=== PATIENT | male | born 1955 | race Hispanic/Latino ===

== ENCOUNTER 2018-12-31 16:10 | Emergency (ER) | payer SELFPAY ==
--- OUTSIDE RECORDS SUMMARY | 2018-12-31 16:12 | XMS REPORT ---
:1955 Author Organization [employer] Care Team Providers Name Role Phone Wilson, Na Provider Role Unavailable Allergies No Known Allergies Problems Problem Type Condition Code Onset Dates Condition Status Problem Varicose veins I86.8 Active Problem Peripheral vascular disease I73.9 Active Problem Obese E66.9 Active Problem Diabetic mononeuropathy associated E11.41 Active with type 2 diabetes mellitus Assessment Benign essential HTN I10 Active Problem Asymptomatic hypertensive urgency I16.0 Active Assessment Asymptomatic hypertensive urgency I16.0 Active Problem Cellulitis of left anterior lower L03.116 Active leg Problem Benign prostatic hyperplasia with N40.1 Active lower urinary tract symptoms Problem Benign essential HTN I10 Active Problem Other secondary osteoarthritis of M17.5 Active knee Problem DM type 2 (diabetes mellitus, type E11.9 Active 2) Assessment Hyperlipidemia, unspecified E78.5 Active Assessment Diabetic mononeuropathy associated E11.41 Active with type 2 diabetes mellitus Assessment Peripheral vascular disease I73.9 Active Assessment Gastroesophageal reflux disease K21.9 Active without esophagitis Problem Osteoarthritis of both knees, M17.0 Active unspecified osteoarthritis type Problem Hyperlipidemia, unspecified E78.5 Active Assessment Hypokalemia E87.6 Active Problem Gastroesophageal reflux disease K21.9 Active without esophagitis Problem Type 2 diabetes mellitus with other E11.69 Active specified complication Medications Medication Code Code Instructions Start End Status Dosage System Date Date Clonidine HCl [facility] 64837278734 0.2 MG Orally May 31, Active 1 tablet three times a 2018 day Potassium [facility] 59146349666 20 MEQ Orally May 31, Aug 29, Active 1 capsule Chloride twice a day 2017 2017 Pravastatin ND 43181152234 40 MG Orally Active 1 tablet Sodium Once a day Zantac [facility] 98584534682 150 MG Orally Active 1 tablet twice a day at bedtime Clonidine HCl [facility] 02982054495 0.1 MG Orally March 15, Active 1 tablet twice a day 2018 at bedtime Lisinopril ND 77642281185 40 MG Orally Active 1 tablet Once a day Coreg [facility] 30923529526 25 MG Orally Active 1 tablet twice a day twice a day Gabapentin [facility] 48552576417 300 MG Orally Active 1 capsule Once a day Plavix [facility] 28560284630 75 MG Orally Active 1 tablet Once a day Amlodipine [facility] 62344519198 10 MG Orally Active 1 tablet Besylate Once a day Results No Known Results Summary Purpose eClinicalWorks Submission
--- OUTSIDE RECORDS SUMMARY | 2018-12-31 16:12 | XMS REPORT ---
:1955 Author Organization [employer] Care Team Providers Name Role Phone Wilson, Na Provider Role Unavailable Allergies, Adverse Reactions, Alerts Substance Reaction Event Type N.K.D.A. Info Not Available Non Drug Allergy Problems Problem Type Condition Code Onset Dates Condition Status Problem Varicose veins I86.8 Active Problem Peripheral vascular disease I73.9 Active Problem Obese E66.9 Active Problem Diabetic mononeuropathy associated E11.41 Active with type 2 diabetes mellitus Assessment Hyperlipidemia, unspecified E78.5 Active Problem Asymptomatic hypertensive urgency I16.0 Active Assessment Gastroesophageal reflux disease K21.9 Active without esophagitis Assessment Hypokalemia E87.6 Active Problem Cellulitis of left anterior lower L03.116 Active leg Problem Benign prostatic hyperplasia with N40.1 Active lower urinary tract symptoms Problem Benign essential HTN I10 Active Problem Other secondary osteoarthritis 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 Active knee Problem DM type 2 (diabetes mellitus, type E11.9 Active 2) Assessment Benign essential HTN I10 Active Assessment Peripheral vascular disease I73.9 Active Assessment Diabetic mononeuropathy associated E11.41 Active with type 2 diabetes mellitus Assessment Asymptomatic hypertensive urgency I16.0 Active Problem Osteoarthritis of both knees, M17.0 Active unspecified osteoarthritis type Problem Hyperlipidemia, unspecified E78.5 Active Assessment DM type 2 (diabetes mellitus, type E11.9 Active 2) Problem Gastroesophageal reflux disease K21.9 Active without esophagitis Problem Type 2 diabetes mellitus with other E11.69 Active specified complication Medications Medication Code Code Instructions Start End Status Dosage System Date Date Amlodipine ND 97717480098 10 MG Orally Active 1 tablet Besylate Once a day Saline Wound ND 70732112617 0.9 % Active as directed Wash Externally twice a day Pravastatin ND 44259181702 40 MG Orally Active 1 tablet Sodium Once a day Potassium ND 91017594828 20 MEQ Orally May 31, Aug 29, Active 1 capsule Chloride twice a day 2017 2017 Lisinopril ND 02886301429 40 MG Orally Active 1 tablet Once a day Vimovo ND 20319286587 500-20 MG Active 1 tablet Orally Twice a before day meals Gabapentin [facility] 48472207638 300 MG Orally Active 1 capsule Once a day Zantac [facility] 94350569125 150 MG Orally Active 1 tablet at twice a day bedtime Plavix [facility] 56977478654 75 MG Orally Active 1 tablet Once a day Clonidine HCl [facility] 00589218682 0.2 MG Orally May 31, Active 1 tablet three times a 2018 day Aspirin Adult [facility] 53743394863 81 MG Orally Active 1 tablet Low Dose Once a day Crestor [facility] 58650337558 5 MG Orally Oct 26, Active 1 tablet Once a day 2017 Clonidine HCl [facility] 92305359456 0.1 MG Orally March 15, Active 1 tablet at twice a day 2018 bedtime Coreg [facility] 02184629799 25 MG Orally Active 1 tablet twice a day twice a day Results No Known Results Summary Purpose eClinicalWorks Submission
--- OUTSIDE RECORDS SUMMARY | 2018-12-31 16:12 | XMS REPORT ---
:1955 Author Organization [employer]Works Care Team Providers Name Role Phone Wilson, Na Provider Role Unavailable Allergies No Known Allergies Problems Problem Type Condition Code Onset Dates Condition Status Problem Varicose veins I86.8 Active Problem Peripheral vascular disease I73.9 Active Problem Obese E66.9 Active Problem Diabetic mononeuropathy associated E11.41 Active with type 2 diabetes mellitus Problem Asymptomatic hypertensive urgency I16.0 Active Problem Cellulitis of left anterior lower L03.116 Active leg Problem Benign prostatic hyperplasia with N40.1 Active lower urinary tract symptoms Problem Benign essential HTN I10 Active Problem Other secondary osteoarthritis 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
--- OUTSIDE RECORDS SUMMARY | 2018-12-31 16:12 | XMS REPORT ---
:1955 Author Organization [employer]Works Care Team Providers Name Role Phone Americo Costello Provider Role Unavailable Allergies, Adverse Reactions, Alerts Substance Reaction Event Type N.K.D.A. Info Not Available Non Drug Allergy Problems Problem Type Condition Code Onset Dates Condition Status Problem Obese E66.9 Active Problem Benign essential HTN I10 Active Problem Peripheral vascular disease I73.9 Active Problem Cellulitis of left anterior lower L03.116 Active leg Problem Diabetic mononeuropathy associated E11.41 Active with type 2 diabetes mellitus Problem Primary osteoarthritis of right M17.11 Active knee Problem Other secondary osteoarthritis of M17.5 Active knee Problem DM type 2 (diabetes mellitus, type E11.9 Active 2) Problem Asymptomatic hypertensive urgency I16.0 Active Problem Benign prostatic hyperplasia with N40.1 Active lower urinary tract symptoms Assessment Contusion of right knee, initial S80.01XA Active encounter Assessment Pain in joint of right knee M25.561 Active Assessment Primary osteoarthritis of right M17.11 Active knee Problem Hyperlipidemia, unspecified E78.5 Active Problem Gastroesophageal reflux disease K21.9 Active without esophagitis Problem Type 2 diabetes mellitus with E11.69 Active other specified complication Problem Osteoarthritis of both knees, M17.0 Active unspecified osteoarthritis type Problem Varicose veins I86.8 Active Medications Medication Code Code Instructions Start End Status Dosage System Date Date Tramadol HCl [facility] 27375518881 50 MG Orally Oct 31, Active 1 tablet as every 6 hrs 2019 needed Coreg ND 53770416791 25 MG Orally Active 1 tablet twice a day twice a day Vimovo [facility] 85947576258 500-20 MG Active 1 tablet Orally Twice a before day meals Aspirin Adult [facility] 33497679079 81 MG Orally Active 1 tablet Low Dose Once a day Saline Wound [facility] 74523999903 0.9 % Active as directed Wash Externally twice a day Gabapentin ND 81334811858 300 MG Orally Active 1 capsule Once a day Plavix [facility] 83079165410 75 MG Orally Active 1 tablet Once a day Clonidine HCl [facility] 40393118668 0.2 MG Orally May 31, Active 1 tablet three times a 2017 day Lisinopril [facility] 04643247884 40 MG Orally Active 1 tablet Once a day Clonidine HCl [facility] 31079396793 0.1 MG Orally March 15, Active 1 tablet at twice a day 2018 bedtime Amlodipine [facility] 89107000279 10 MG Orally Active 1 tablet Besylate Once a day Crestor [facility] 81899917510 5 MG Orally Oct 26, Active 1 tablet Once a day 2017 Potassium [facility] 35398261801 20 MEQ Active TAKE 1 Chloride Rossy TABLET BY ER MOUTH TWICE DAILY WITH FOOD Pravastatin [facility] 59781385573 40 MG Orally Active 1 tablet Sodium Once a day Zantac [facility] 18075817436 150 MG Orally Active 1 tablet at twice a day bedtime Results No Known Results Summary Purpose eClinicalWorks Submission
--- OUTSIDE RECORDS SUMMARY | 2018-12-31 16:12 | XMS REPORT ---
[...] Medications Medication Code Code Instructions Start End Date Status Dosage System Date [facility] M20 [facility] 88669063215 20 MEQ Orally April 08, May 08, Active 1 tablet Twice a day 2017 2017 with food Results No Known Results Summary Purpose eClinicalWorks Submission
--- OUTSIDE RECORDS SUMMARY | 2018-12-31 16:13 | XMS REPORT ---
:1955 Author Organization eClinicalWorks Care Team Providers Name Role Phone Wilson, Na Provider Role Unavailable Allergies, Adverse Reactions, Alerts Substance Reaction Event Type N.K.D.A. Info Not Available Non Drug Allergy Problems Problem Type Condition Code Onset Dates Condition Status Assessment Hypokalemia E87.6 Active Problem Peripheral vascular disease I73.9 Active Assessment Gastroesophageal reflux disease K21.9 Active without esophagitis Problem Benign essential HTN I10 Active Assessment Hyperlipidemia, unspecified E78.5 Active Problem DM type 2 (diabetes mellitus, type E11.9 Active 2) Problem Obese E66.9 Active Problem Benign prostatic hyperplasia with N40.1 Active lower urinary tract symptoms Problem Renal cyst N28.1 Active Problem Primary osteoarthritis of right M17.11 Active knee Assessment Peripheral vascular disease I73.9 Active Assessment Renal cyst N28.1 Active Problem Hypokalemia E87.6 Active Assessment Diabetic mononeuropathy associated E11.41 Active with type 2 diabetes mellitus Problem Asymptomatic hypertensive urgency I16.0 Active Problem Other secondary osteoarthritis of M17.5 Active knee Problem Cellulitis of left anterior lower L03.116 Active leg Problem Diabetic mononeuropathy associated E11.41 Active with type 2 diabetes mellitus Problem Osteoarthritis of both knees, M17.0 Active unspecified osteoarthritis type Assessment Asymptomatic hypertensive urgency I16.0 Active Assessment DM type 2 (diabetes mellitus, type E11.9 Active 2) Problem Type 2 diabetes mellitus with other E11.69 Active specified complication Problem Varicose veins I86.8 Active Problem Hyperlipidemia, unspecified E78.5 Active Problem Gastroesophageal reflux disease K21.9 Active without esophagitis Medications Medication Code Code Instructions Start End Status Dosage System Date Date Lisinopril [facility] 84874385069 40 MG Orally Active 1 tablet Once a day Clonidine HCl [facility] 72391872574 0.1 MG Orally March 15, Active 1 tablet at twice a day 2018 bedtime Coreg [facility] 02501504953 25 MG Orally Active 1 tablet twice a day twice a day Vimovo [facility] 57668819565 500-20 MG Active 1 tablet Orally Twice a before day meals Potassium [facility] 98611533797 20 MEQ Active TAKE 1 Chloride Rossy TABLET BY ER MOUTH TWICE DAILY WITH FOOD Plavix [facility] 13420166750 75 MG Orally Active 1 tablet Once a day Pravastatin [facility] 18154959188 40 MG Orally Active 1 tablet Sodium Once a day Zantac [facility] 61746157441 150 MG Orally Active 1 tablet at twice a day bedtime Clonidine HCl [facility] 70997158596 0.2 MG Orally Active 1 tablet three times a day Aspirin Adult [facility] 30143405700 81 MG Orally Active 1 tablet Low Dose Once a day Telmisartan [facility] 36760110068 80 MG Orally Nov 11, Active 1 tablet Once a day 2018 Amlodipine [facility] 86396263558 10 MG Orally Active 1 tablet Besylate Once a day Gabapentin [facility] 05391731495 300 MG Orally Active 1 capsule Once a day Saline Wound [facility] 39158437976 0.9 % Active as directed Wash Externally twice a day Crestor [facility] 88335324578 5 MG Orally Oct 26, Active 1 tablet Once a day 2017 Potassium [facility] 16882948358 20 MEQ Orally Nov 11, Active 1 tablet Chloride ER twice a day 2018 with food Results No Known Results Summary Purpose eClinicalWorks Submission
--- OUTSIDE RECORDS SUMMARY | 2018-12-31 16:13 | XMS REPORT ---
:1955 [facility] Address [address] [place] [address] Dr. Yang [address] [place] [id number] Care Team Providers Name Role Phone Unavailable Unavailable Unavailable Problems This patient has no known problems. Allergies, Adverse Reactions, Alerts This patient has no known allergies or adverse reactions. Medications This patient has no known medications.
--- OUTSIDE RECORDS SUMMARY | 2018-12-31 16:13 | XMS REPORT ---
:1955 Author Organization eClinicalWorks Care Team Providers Name Role Phone Americo Costello Provider Role Unavailable Allergies, Adverse Reactions, Alerts Substance Reaction Event Type N.K.D.A. Info Not Available Non Drug Allergy Problems Problem Type Condition Code Onset Dates Condition Status Problem DM type 2 (diabetes mellitus, type E11.9 Active 2) Problem Obese E66.9 Active Problem Benign prostatic hyperplasia with N40.1 Active lower urinary tract symptoms Problem Renal cyst N28.1 Active Assessment Primary osteoarthritis of right M17.11 Active knee Problem Primary osteoarthritis of right M17.11 Active knee Problem Hypokalemia E87.6 Active Problem Asymptomatic hypertensive urgency I16.0 Active Problem Other secondary osteoarthritis of M17.5 Active knee Problem Cellulitis of left anterior lower L03.116 Active leg Problem Diabetic mononeuropathy associated E11.41 Active with type 2 diabetes mellitus Problem Osteoarthritis of both knees, M17.0 Active unspecified osteoarthritis type Assessment Contusion of right knee, initial S80.01XA Active encounter Assessment Pain in joint of right knee M25.561 Active Problem Type 2 diabetes mellitus with E11.69 Active other specified complication Problem Varicose veins I86.8 Active Problem Hyperlipidemia, unspecified E78.5 Active Problem Peripheral vascular disease I73.9 Active Problem Gastroesophageal reflux disease K21.9 Active without esophagitis Problem Benign essential HTN I10 Active Medications Medication Code Code Instructions Start End Status Dosage System Date Date Zantac ND 99881372424 150 MG Orally Active 1 tablet at twice a day bedtime Clonidine HCl ND 86899154684 0.2 MG Orally Active 1 tablet three times a day Amlodipine ND 17542949498 10 MG Orally Active 1 tablet Besylate Once a day Potassium ND 26471549219 20 MEQ Orally Nov 11, Active 1 tablet Chloride ER twice a day 2019 with food Potassium ND 30361446036 20 MEQ Active TAKE 1 Chloride Rossy TABLET BY ER MOUTH TWICE DAILY WITH FOOD Clonidine HCl ND 40801894225 0.1 MG Orally March 15, Active 1 tablet at twice a day [address] [facility] 53451743210 5 MG Orally Oct 26, Active 1 tablet Once a day [address] [facility] 95495042422 40 MG Orally Active 1 tablet Once a day Tramadol HCl [facility] 40249696802 50 MG Orally Active 1 tablet as every [address] [facility] 52284302131 40 MG Orally Active 1 tablet Sodium Once a day Telmisartan [facility] 32577798051 80 MG Orally Nov 11, Active 1 tablet Once a day [address] [facility] 49896209830 75 MG Orally Active 1 tablet Once a day Coreg [facility] 20400548695 25 MG Orally Active 1 tablet twice a day twice a day Vimovo [facility] 32348069393 500-20 MG Active 1 tablet Orally Twice a before day meals Aspirin Adult [facility] 21599235792 81 MG Orally Active 1 tablet Low Dose Once a day Gabapentin [facility] 80332033774 300 MG Orally Active 1 capsule Once a day Saline Wound [facility] 58405037645 0.9 % Active as directed Wash Externally twice a day Results No Known Results Summary Purpose eClinicalWorks Submission
--- OUTSIDE RECORDS SUMMARY | 2018-12-31 16:13 | XMS REPORT ---
[...] N40.1 Active lower urinary tract symptoms Problem Hyperlipidemia, unspecified E78.5 Active Problem Gastroesophageal reflux disease K21.9 Active without esophagitis Problem Type 2 diabetes mellitus with other E11.69 Active specified complication Problem Osteoarthritis of both knees, M17.0 Active unspecified osteoarthritis type Problem Varicose veins I86.8 Active Medications No Known Medications Results No Known Results Summary Purpose [employer] Submission
--- NOTE | 2018-12-31 17:25 | ER ---
Nurse's Notes [facility] Name: Son Parker Age: 63 yrs Sex: Male : 1955 Arrival Date: 12/31/2018 Time: 16:12 Bed 11 Private MD: Diagnosis: Nondisplaced comminuted fracture of right patella;Contusion of right front wall of thorax;Fracture of one rib, right side Presentation: 12/31 16:15 Presenting complaint: Patient states: i fell Sunday, my right ribs hurt, and both of my tw2 knees i was standing and i wanted to go up to the sidewalk and my legs didn't go up and then i fell, denies loc, didn't hit my head. Transition of care: patient was not received from another setting of care. Onset of symptoms was December 31, 2018. Risk Assessment: Do you want to hurt yourself or someone else? Patient reports no desire to harm self or others. Initial Sepsis Screen: Does the patient meet any 2 criteria? No. Patient's initial sepsis screen is negative. Does the patient have a suspected source of infection? No. Patient's initial sepsis screen is negative. Care prior to arrival: None. 16:15 Method Of Arrival: Wheelchair tw2 16:15 Acuity: HEATHER 4 tw2 Triage Assessment: 16:17 General: Appears in no apparent distress. Behavior is calm, cooperative, appropriate tw2 for age. Pain: Complains of pain in right ribs, b/l knees. Historical: - Allergies: 16:18 No Known Allergies; tw2 - PMHx: 16:18 Diabetes - NIDDM; Hypertension; tw2 - Immunization history:: Adult Immunizations. - Social history:: Smoking status: . - Ebola Screening: : Patient negative for fever greater than or equal to 101.5 degrees Fahrenheit, and additional compatible Ebola Virus Disease symptoms Patient denies travel to an Ebola-affected area in the 21 days before illness onset. Screenin:30 Abuse screen: Denies threats or abuse. Denies injuries from another. Nutritional aj1 screening: No deficits noted. Tuberculosis screening: No symptoms or risk factors identified. 18:16 Fall Risk Fall in past 12 months (25 points). No secondary diagnosis (0 pts). No IV (0 aj1 pts). Ambulatory Aid- Crutches/Cane/Walker (15 pts). Gait- Impaired (20 pts.). Mental Status- Oriented to own ability (0 pts). Total Snider Fall Scale indicates High Risk Score (45 or more points). As available patient and family educated on Fall Prevention Program and Strategies. Assessment: 16:30 General: Appears in no apparent distress. uncomfortable, Behavior is calm, cooperative, aj1 appropriate for age. Pain: Complains of pain in right leg and left knee and right lateral anterior chest. Neuro: Level of Consciousness is awake, alert, obeys commands. Cardiovascular: Patient's skin is warm and dry. Respiratory: Airway is patent Respiratory effort is even, unlabored, Respiratory pattern is regular, symmetrical. Derm: Skin is pink, warm \T\ dry. normal. Musculoskeletal: Range of motion: limited in left knee and right knee. 17:30 Reassessment: Patient appears in no apparent distress at this time. No changes from aj1 previously documented assessment. Patient and/or family updated on plan of care and expected duration. Pain level reassessed. Patient is alert, oriented x 3, equal unlabored respirations, skin warm/dry/pink. Vital Signs: 16:17 BP 170 / 105; Pulse 88; Resp 17; Temp 98.4(O); Pulse Ox 99% on R/A; Weight 89.81 kg tw2 (R); Pain 8/10; ED Course: 16:12 Patient arrived in ED. mr 16:17 Triage completed. tw2 16:17 Arm band placed on. tw2 16:19 Jasmina Merritt [facility]-C [facility]. kb 16:19 Sohail Adams MD is Attending Physician. kb 16:30 Patient has correct armband on for positive identification. Bed in low position. Call aj1 light in reach. Side rails up X 1. 16:30 No provider procedures requiring assistance completed. Patient did not have IV access aj1 during this emergency room visit. 16:42 Gabby Yancey, RN is Primary Nurse. aj1 16:59 X-ray completed. Patient tolerated procedure well. Patient moved back from radiology. az 17:01 Knee Left 2 View XRAY In Process Unspecified. EDMS 17:01 Knee Right 2 View XRAY In Process Unspecified. EDMS 17:01 Chest Single View XRAY In Process Unspecified. EDMS 17:01 Ribs Right XRAY In Process Unspecified. EDMS 18:16 Knee immobilizer applied on right knee. aj1 Administered Medications: 18:15 Drug: Paradox (7.5 mg-325 mg) 1 tabs Route: PO; aj1 18:17 Follow up: Response: No adverse reaction aj1 Outcome: 17:24 Discharge ordered by . kb 18:16 Discharged to home with family. aj1 18:16 Condition: good 18:16 Discharge instructions given to patient, Instructed on discharge instructions, follow up and referral plans. medication usage, Demonstrated understanding of instructions, follow-up care, medications, Prescriptions given X 1. 18:18 Patient left the ED. aj1 Signatures: Dispatcher [employer] EDMS Jasmina Merritt, HUMAN RESOURCES ASSOCIATE-C HUMAN RESOURCES ASSOCIATE-CkGabby Haq, RN RN aj1 La Menjivar Tara, RN RN tw2 Tess Jacobs
--- NOTE | 2018-12-31 17:25 | EDPHYS ---
Physician Documentation [facility] Name: Son Parker Age: 63 yrs Sex: Male : 1955 Arrival Date: 12/31/2018 Time: 16:12 Bed 11 Private MD: ED Physician Sohail Adams HPI: 12/31 16:33 This 63 yrs old Male presents to ER via Wheelchair with complaints of Knee kb Pain, rib pain. 16:33 Details of fall: The patient fell from an upright position, while walking. Onset: The kb symptoms/episode began/occurred yesterday. Associated injuries: The patient sustained injury to the chest, specifically the right lateral anterior chest and right breast, contusion, ecchymosis, pain with movement, tenderness, right knee and left knee, ecchymosis, painful injury. Severity of symptoms: At their worst the symptoms were moderate, in the emergency department the symptoms are unchanged. The patient has not experienced similar symptoms in the past. The patient has not recently seen a physician. Historical: - Allergies: 16:18 No Known Allergies; tw2 - PMHx: 16:18 Diabetes - NIDDM; Hypertension; tw2 - Immunization history:: Adult Immunizations. - Social history:: Smoking status: . - Ebola Screening: : Patient negative for fever greater than or equal to 101.5 degrees Fahrenheit, and additional compatible Ebola Virus Disease symptoms Patient denies travel to an Ebola-affected area in the 21 days before illness onset. ROS: 16:30 Constitutional: Negative for fever, chills, and weight loss, ENT: Negative for injury, kb pain, and discharge, Neck: Negative for injury, pain, and swelling, Respiratory: Negative for shortness of breath, cough, wheezing, and pleuritic chest pain, Abdomen/GI: Negative for abdominal pain, nausea, vomiting, diarrhea, and constipation, Back: Negative for injury and pain, Skin: Negative for injury, rash, and discoloration, Neuro: Negative for headache, weakness, numbness, tingling, and seizure. 16:30 Cardiovascular: Positive for chest pain, with cough, with movement, of the right lateral anterior chest and right breast. 16:30 MS/extremity: Positive for ecchymosis, pain, of the right knee and left knee. kb Exam: 16:30 Constitutional: This is a well developed, well nourished patient who is awake, alert, kb and in no acute distress. Head/Face: Normocephalic, atraumatic. ENT: Nares patent. No nasal discharge, no septal abnormalities noted. Tympanic membranes are normal and external auditory canals are clear. Oropharynx with no redness, swelling, or masses, exudates, or evidence of obstruction, uvula midline. Mucous membranes moist. Neck: Trachea midline, no thyromegaly or masses palpated, and no cervical lymphadenopathy. Supple, full range of motion without nuchal rigidity, or vertebral point tenderness. No Meningismus. Cardiovascular: Regular rate and rhythm with a normal S1 and S2. No gallops, murmurs, or rubs. Normal PMI, no JVD. No pulse deficits. Respiratory: Lungs have equal breath sounds bilaterally, clear to auscultation and percussion. No rales, rhonchi or wheezes noted. No increased work of breathing, no retractions or nasal flaring. Abdomen/GI: Soft, non-tender, with normal bowel sounds. No distension or tympany. No guarding or rebound. No evidence of tenderness throughout. Neuro: Awake and alert, GCS 15, oriented to person, place, time, and situation. Cranial nerves II-XII grossly intact. Motor strength 5/5 in all extremities. Sensory grossly intact. Cerebellar exam normal. Normal gait. 16:30 Chest/axilla: Inspection: ecchymosis, that is mild, of the right lateral anterior chest and right breast Palpation: tenderness, that is moderate, of the right lateral anterior chest and right breast, that totally reproduces the patient's complaints. 16:30 Cardiovascular: Edema: 2+ edema to level of bilateral lower extremities, reports the edema has been there for 5-6 months, nothing acute. 16:30 Musculoskeletal/extremity: Extremities: grossly normal except: noted in the right knee and left knee: ecchymosis, pain, tenderness, ROM: intact in all extremities, Circulation is intact in all extremities. Sensation intact. Weight bearing: can bear weight with assistance only, uses cane. Vital Signs: 16:17 BP 170 / 105; Pulse 88; Resp 17; Temp 98.4(O); Pulse Ox 99% on R/A; Weight 89.81 kg tw2 (R); Pain 8/10; MDM: 16:19 Patient medically screened. kb 16:30 Data reviewed: vital signs, nurses notes. Data interpreted: Pulse oximetry: on room air kb is 99 %. Interpretation: normal. 17:16 Counseling: I had a detailed discussion with the patient and/or guardian regarding: the kb historical points, exam findings, and any diagnostic results supporting the discharge/admit diagnosis, the need for outpatient follow up, a family practitioner, a orthopedic surgeon, to return to the emergency department if symptoms worsen or persist or if there are any questions or concerns that arise at home. 17:22 Test interpretation: by ED physician or midlevel provider: plain radiologic studies, kb plain films reviewed with ERP . 12/31 16:24 Order name: Knee Left 2 View XRAY; Complete Time: 17:33 kb 12/31 16:24 Order name: Knee Right 2 View XRAY; Complete Time: 17:29 kb 12/31 16:24 Order name: Chest Single View XRAY; Complete Time: 17:26 kb 12/31 16:24 Order name: Ribs Right XRAY; Complete Time: 17:28 kb 12/31 17:22 Order name: Knee Immobilizer; Complete Time: 18:15 kb Administered Medications: 18:15 Drug: Ellsworth (7.5 mg-325 mg) 1 tabs Route: PO; aj1 18:17 Follow up: Response: No adverse reaction aj1 Disposition: 01/01 07:16 Co-signature as Attending Physician, Sohail Adams MD I agree with the assessment and kimber plan of care. Disposition: 12/31/18 17:24 Discharged to Home. Impression: Nondisplaced comminuted fracture of right patella, Contusion of right front wall of thorax, Fracture of one rib, right side. - Condition is Stable. - Discharge Instructions: Patellar Fracture, Adult, Chest Contusion, Ppfy-ba-Xvam, Rib Fracture, Eifp-du-Ivzh. - Prescriptions for Tramadol 50 mg Oral Tablet - take 1 tablet by ORAL route every 8 hours as needed; 12 tablet. - Medication Reconciliation Form, Thank You Letter, Antibiotic Education, Prescription Opioid Use form. - Follow up: Emergency Department; When: As needed; Reason: Worsening of condition. Follow up: Private Physician; When: 2 - 3 days; Reason: Recheck today's complaints, Continuance of care, Re-evaluation by your physician. Signatures: Dispatcher [employer] EDMS Jasmina Merritt, HEALTH CARE LIAISON-C HEALTH CARE LIAISON-Ckb Gabby Yancey, RN RN aj1 Sohail Adams MD MD cha Wise, Tara, RN RN tw2 Corrections: (The following items were deleted from the chart) 12/31 17:24 17:24 12/31/2018 17:24 Discharged to Home. Impression: Nondisplaced comminuted fracture kb of right patella; Contusion of right front wall of thorax. Condition is Stable. Discharge Instructions: Patellar Fracture, Adult, Chest Contusion, Xpyg-yb-Ifev, Rib Fracture, Uhll-rp-Vazu. Prescriptions for Tramadol 50 mg Oral Tablet - take 1 tablet by ORAL route every 8 hours as needed; 12 tablet. and Forms are Medication Reconciliation Form, Thank You Letter, Antibiotic Education, Prescription Opioid Use. kb 17:29 17:24 12/31/2018 17:24 Discharged to Home. Impression: Nondisplaced comminuted fracture kb of right patella; Contusion of right front wall of thorax. Condition is Stable. Discharge Instructions: Patellar Fracture, Adult, Chest Contusion, Kwmg-fh-Wzyd, Rib Fracture, Jegm-mu-Gprl. Prescriptions for Tramadol 50 mg Oral Tablet - take 1 tablet by ORAL route every 8 hours as needed; 12 tablet. and Forms are Medication Reconciliation Form, Thank You Letter, Antibiotic Education, Prescription Opioid Use. Follow up: Emergency Department; When: As needed; Reason: Worsening of condition. Follow up: Private Physician; When: 2 - 3 days; Reason: Recheck today's complaints, Continuance of care, Re-evaluation by your physician. kb 18:18 17:29 12/31/2018 17:24 Discharged to Home. Impression: Nondisplaced comminuted fracture aj1 of right patella; Contusion of right front wall of thorax; Fracture of one rib, right side. Condition is Stable. Discharge Instructions: Patellar Fracture, Adult, Chest Contusion, Jdbh-kl-Dbna, Rib Fracture, [id number]-xo-Tqzn. Prescriptions for Tramadol 50 mg Oral Tablet - take 1 tablet by ORAL route every 8 hours as needed; 12 tablet. and Forms are Medication Reconciliation Form, Thank You Letter, Antibiotic Education, Prescription Opioid Use. Follow up: Emergency Department; When: As needed; Reason: Worsening of condition. Follow up: Private Physician; When: 2 - 3 days; Reason: Recheck today's complaints, Continuance of care, Re-evaluation by your physician. kb
--- NOTE | 2018-12-31 17:25 | RAD REPORT ---
EXAM DESCRIPTION: RAD - Chest Single View - 12/31/2018 5:00 pm CLINICAL HISTORY: CHEST PAIN Chest pain. COMPARISON: Ribs Right dated 12/31/2018 FINDINGS: Portable technique limits examination quality. Linear opacities are present in both lung bases suspicious for mild subsegmental atelectasis. The jay gs are otherwise clear. The heart is mildly enlarged in size. No displaced rib fracture evident. IMPRESSION: Mild linear subsegmental atelectasis in both lung bases.
--- NOTE | 2018-12-31 17:28 | RAD REPORT ---
EXAM DESCRIPTION: RAD - Ribs Right - 12/31/2018 5:00 pm CLINICAL HISTORY: PAIN Fall, right rib pain COMPARISON: Chest Single View dated 12/31/2018 FINDINGS: Diffuse osteopenia is seen. Several old/healed posterolateral right rib fractures seen. Dasilva btle linear lucency is seen in the single right posterolateral rib, likely rib number 8, suspicious f or nondisplaced fracture.
--- NOTE | 2018-12-31 17:28 | RAD REPORT ---
EXAM DESCRIPTION: RAD - Knee Right 2 View - 12/31/2018 5:01 pm CLINICAL HISTORY: PAIN Fall, pain COMPARISON: No comparisons FINDINGS: Lucency is seen in the mid aspect of the patella compatible with nondisplaced patellar fra cture. A small suprapatellar joint effusion. Severe osteoarthritis involves the medial compartment wi th [id number].
--- NOTE | 2018-12-31 17:31 | RAD REPORT ---
EXAM DESCRIPTION: RAD - Knee Left 2 View - 12/31/2018 5:00 pm CLINICAL HISTORY: PAIN Fall, pain COMPARISON: No comparisons FINDINGS: Severe osteoarthritis is present involving the medial joint compartment. No acute fracture or dislocation seen. Small joint effusion is present.
[2018-12-31] MEDS ORDERED: HYDROCODONE/APAP 7.5/325 MG TAB ONE (17:54)
== END 2018-12-31 18:18 | disposition home or self-care (01) ==
LOC: ER 16:10
DX: S22.31XA Fracture of one rib, right side, initial encounter for closed fracture (principal); S82.044A Nondisplaced comminuted fracture of right patella, initial encounter for closed fracture; S20.211A Contusion of right front wall of thorax, initial encounter; W19.XXXA Unspecified fall, initial encounter; Y93.01 Activity, walking, marching and hiking; Y92.9 Unspecified place or not applicable; I10 Essential (primary) hypertension
CPT/HCPCS: 71045; 99284

== ENCOUNTER 2019-01-30 10:35 | Emergency (ER) | payer OTHER, SELFPAY ==
--- OUTSIDE RECORDS SUMMARY | 2019-01-30 10:40 | XMS REPORT ---
[...] Start End Date Status Dosage System Date [facility] M20 [facility] 68018511635 20 MEQ Orally April 08, May 08, Active 1 tablet Twice a day 2017 2017 with food Results No Known Results Summary Purpose eClinicalWorks Submission
--- OUTSIDE RECORDS SUMMARY | 2019-01-30 10:41 | XMS REPORT ---
[...] Status Dosage System Date Date Amlodipine ND 86680310167 10 MG Orally Active 1 tablet Besylate Once a day Saline Wound ND 68836585412 0.9 % Active as directed Wash Externally twice a day Pravastatin ND 95342012364 40 MG Orally Active 1 tablet Sodium Once a day Potassium ND 39680584657 20 MEQ Orally May 31, Aug 29, Active 1 capsule Chloride twice a day 2017 2017 Lisinopril ND 99265307845 40 MG Orally Active 1 tablet Once a day Vimovo ND 47118166140 500-20 MG Active 1 tablet Orally Twice a before day meals Gabapentin [facility] 06135790912 300 MG Orally Active 1 capsule Once a day Zantac [facility] 61677860869 150 MG Orally Active 1 tablet at twice a day bedtime Plavix [facility] 37117463610 75 MG Orally Active 1 tablet Once a day Clonidine HCl [facility] 71361618397 0.2 MG Orally May 31, Active 1 tablet three times a 2018 day Aspirin Adult [facility] 53276699787 81 MG Orally Active 1 tablet Low Dose Once a day Crestor [facility] 00899865257 5 MG Orally Oct 26, Active 1 tablet Once a day 2017 Clonidine HCl [facility] 72203732654 0.1 MG Orally March 15, Active 1 tablet at twice a day 2018 bedtime Coreg [facility] 96444193765 25 MG Orally Active 1 tablet twice a day twice a day Results No Known Results Summary Purpose eClinicalWorks Submission
--- OUTSIDE RECORDS SUMMARY | 2019-01-30 10:41 | XMS REPORT ---
:1955 [facility] Address [address] [place] [address] Dr. Yang [address] [place] [address] Care Team Providers Name Role Phone Unavailable Unavailable Unavailable Problems This patient has no known problems. Allergies, Adverse Reactions, Alerts This patient has no known allergies or adverse reactions. Medications This patient has no known medications.
--- OUTSIDE RECORDS SUMMARY | 2019-01-30 10:41 | XMS REPORT ---
[...] End Status Dosage System Date Date Lisinopril [facility] 90039477484 40 MG Orally Active 1 tablet Once a day Clonidine HCl [facility] 93597087004 0.1 MG Orally March 15, Active 1 tablet at twice a day 2018 bedtime Coreg [facility] 90993380706 25 MG Orally Active 1 tablet twice a day twice a day Vimovo [facility] 00992391465 500-20 MG Active 1 tablet Orally Twice a before day meals Potassium [facility] 34865026597 20 MEQ Active TAKE 1 Chloride Rossy TABLET BY ER MOUTH TWICE DAILY WITH FOOD Plavix [facility] 94023413872 75 MG Orally Active 1 tablet Once a day Pravastatin [facility] 15786604156 40 MG Orally Active 1 tablet Sodium Once a day Zantac [facility] 69932569518 150 MG Orally Active 1 tablet at twice a day bedtime Clonidine HCl [facility] 36720968674 0.2 MG Orally Active 1 tablet three times a day Aspirin Adult [facility] 70460935761 81 MG Orally Active 1 tablet Low Dose Once a day Telmisartan [facility] 49764374999 80 MG Orally Nov 11, Active 1 tablet Once a day 2018 Amlodipine [facility] 03075149779 10 MG Orally Active 1 tablet Besylate Once a day Gabapentin [facility] 96000148103 300 MG Orally Active 1 capsule Once a day Saline Wound [facility] 48721349932 0.9 % Active as directed Wash Externally twice a day Crestor [facility] 17136411977 5 MG Orally Oct 26, Active 1 tablet Once a day 2017 Potassium [facility] 64409245750 20 MEQ Orally Nov 11, Active 1 tablet Chloride ER twice a day 2018 with food Results No Known Results Summary Purpose eClinicalWorks Submission
--- OUTSIDE RECORDS SUMMARY | 2019-01-30 10:41 | XMS REPORT ---
[...] Medications Results No Known Results Summary Purpose [employer] Submission
--- OUTSIDE RECORDS SUMMARY | 2019-01-30 10:41 | XMS REPORT ---
[...] Status Dosage System Date Date Tramadol HCl [facility] 44374207257 50 MG Orally Oct 31, Active 1 tablet as every 6 hrs 2019 needed Coreg ND 35726277285 25 MG Orally Active 1 tablet twice a day twice a day Vimovo [facility] 72781673148 500-20 MG Active 1 tablet Orally Twice a before day meals Aspirin Adult [facility] 67338517552 81 MG Orally Active 1 tablet Low Dose Once a day Saline Wound [facility] 77805290184 0.9 % Active as directed Wash Externally twice a day Gabapentin ND 13691277853 300 MG Orally Active 1 capsule Once a day Plavix [facility] 28245444734 75 MG Orally Active 1 tablet Once a day Clonidine HCl [facility] 98423576116 0.2 MG Orally May 31, Active 1 tablet three times a 2017 day Lisinopril [facility] 97305044911 40 MG Orally Active 1 tablet Once a day Clonidine HCl [facility] 19695216875 0.1 MG Orally March 15, Active 1 tablet at twice a day 2018 bedtime Amlodipine [facility] 04728314730 10 MG Orally Active 1 tablet Besylate Once a day Crestor [facility] 54812594965 5 MG Orally Oct 26, Active 1 tablet Once a day 2017 Potassium [facility] 12244293642 20 MEQ Active TAKE 1 Chloride Rossy TABLET BY ER MOUTH TWICE DAILY WITH FOOD Pravastatin [facility] 04734128780 40 MG Orally Active 1 tablet Sodium Once a day Zantac [facility] 02450820214 150 MG Orally Active 1 tablet at twice a day bedtime Results No Known Results Summary Purpose eClinicalWorks Submission
--- OUTSIDE RECORDS SUMMARY | 2019-01-30 10:41 | XMS REPORT ---
[...] Status Dosage System Date Date Zantac ND 33208859983 150 MG Orally Active 1 tablet at twice a day bedtime Clonidine HCl ND 14395373640 0.2 MG Orally Active 1 tablet three times a day Amlodipine ND 75212506341 10 MG Orally Active 1 tablet Besylate Once a day Potassium ND 85170763951 20 MEQ Orally Nov 11, Active 1 tablet Chloride ER twice a day 2019 with food Potassium ND 65118593499 20 MEQ Active TAKE 1 Chloride Rossy TABLET BY ER MOUTH TWICE DAILY WITH FOOD Clonidine HCl ND 64737147535 0.1 MG Orally March 15, Active 1 tablet at twice a day 2018 bedtime Crestor [facility] 75511960030 5 MG Orally Oct 26, Active 1 tablet Once a day 2017 Lisinopril [facility] 47402326458 40 MG Orally Active 1 tablet Once a day Tramadol HCl [facility] 63953809338 50 MG Orally Active 1 tablet as every 6 hrs needed Pravastatin [facility] 93686701498 40 MG Orally Active 1 tablet Sodium Once a day Telmisartan [facility] 09034895746 80 MG Orally Nov 11, Active 1 tablet Once a day 2018 Plavix [facility] 12649850490 75 MG Orally Active 1 tablet Once a day Coreg [facility] 88363487031 25 MG Orally Active 1 tablet twice a day twice a day Vimovo [facility] 38304481343 500-20 MG Active 1 tablet Orally Twice a before day meals Aspirin Adult [facility] 16479105335 81 MG Orally Active 1 tablet Low Dose Once a day Gabapentin [facility] 89776648941 300 MG Orally Active 1 capsule Once a day Saline Wound [facility] 32655221314 0.9 % Active as directed Wash Externally twice a day Results No Known Results Summary Purpose eClinicalWorks Submission
--- OUTSIDE RECORDS SUMMARY | 2019-01-30 10:41 | XMS REPORT ---
[...] Status Dosage System Date Date Clonidine HCl [facility] 51922681153 0.2 MG Orally May 31, Active 1 tablet three times a 2018 day Potassium [facility] 94205441336 20 MEQ Orally May 31, Aug 29, Active 1 capsule Chloride twice a day 2017 2017 Pravastatin ND 32985333017 40 MG Orally Active 1 tablet Sodium Once a day Zantac [facility] 60173352738 150 MG Orally Active 1 tablet twice a day at bedtime Clonidine HCl [facility] 98335418926 0.1 MG Orally March 15, Active 1 tablet twice a day 2018 at bedtime Lisinopril ND 77554844907 40 MG Orally Active 1 tablet Once a day Coreg [facility] 31360653283 25 MG Orally Active 1 tablet twice a day twice a day Gabapentin [facility] 12327251595 300 MG Orally Active 1 capsule Once a day Plavix [facility] 80774812236 75 MG Orally Active 1 tablet Once a day Amlodipine [facility] 64751786843 10 MG Orally Active 1 tablet Besylate Once a day Results No Known Results Summary Purpose eClinicalWorks Submission
--- NOTE | 2019-01-30 11:33 | RAD REPORT ---
EXAM DESCRIPTION: CT - CTHCSPWOC - 01/30/2019 11:21 am CLINICAL HISTORY: Trauma, head and neck injury. fall COMPARISON: No comparisons TECHNIQUE: Axial 5 mm thick images of the head were obtained. Axial 2 mm thick images of the cervical spine were obtained with sagittal and coronal reconstruction images generated and reviewed. All CT scans are performed using dose optimization technique as appropriate and may include automated exposure control or mA/KV adjustment according to patient size. FINDINGS: CT HEAD WITHOUT CONTRAST: No acute hemorrhage, hydrocephalus or extra-axial collection is identified.Mild generalized brain atr ophy.No areas of brain edema or midline shift. The paranasal sinuses and mastoids are clear.The calvarium is intact. CT CERVICAL SPINE WITHOUT CONTRAST: No fracture or subluxation.Mild multilevel spondylosis of the cervical spine is present.No prevertebr al soft tissues swelling is identified. IMPRESSION: No acute intracranial or cervical spine findings.
--- NOTE | 2019-01-30 11:42 | RAD REPORT ---
EXAM DESCRIPTION: CT - CTFB CLINICAL HISTORY: FACIAL PAIN Trauma, pain and swelling to the face. COMPARISON: Head C Spine Mpr Wo Con dated 01/30/2019 TECHNIQUE: Axial 2 mm thick images of the face were obtained with sagittal and coronal reconstructio n images. All CT scans are performed using dose optimization technique as appropriate and may include automated exposure control or mA/KV adjustment according to patient size. FINDINGS: No acute facial bone fracture is seen.The mandible is intact. The globes and orbital contents are grossly unremarkable.The paranasal sinuses and mastoids are essen tially clear. IMPRESSION: Negative for facial bone fracture.
--- NOTE | 2019-01-30 11:48 | RAD REPORT ---
EXAM DESCRIPTION: RAD - Chest Single View - 01/30/2019 11:33 am CLINICAL HISTORY: BLUNT CHEST TRAUMA Chest pain. COMPARISON: Chest Single View dated 12/31/2018 FINDINGS: Portable technique limits examination quality. The lungs are grossly clear. The heart is mildly enlarged in size. No displaced fractures. IMPRESSION: No acute intrathoracic process suspected.
[2019-01-30 12:07] LABS: Absolute Lymphocytes (CBC) 0.8 K/uL (0.7-4.9); Absolute Monocytes 0.5 K/uL (0.1-1.3); Absolute Neutrophil 5.6 K/uL (1.8-8.0); Basophils % 0.4 % (0-1.3); Eosinophils % 0.2 % (0-4.4); Hematocrit 32.6 % (39.6-49.0); Lymphocytes % 10.9 % (15.3-44.8); MPV 9.2 fL (7.6-11.3); Monocytes % 7.3 % (3.3-12.3); RBC Red Blood Cell Count 3.54 M/uL (4.33-5.43)
[2019-01-30 12:22] LABS: BUN Blood Urea Nitrogen 14 mg/dL (7-18); Bicarbonate 36 mmol/L (21-32); Glucose Level 259 mg/dL (74-106); NT PRO-BNP 4077 pg/mL (<125); Sodium Level 146 mmol/L (136-145)
[2019-01-30 12:23] LABS: Potassium 2.5 mmol/L (3.5-5.1)
[2019-01-30] MEDS ORDERED: FUROSEMIDE 40 MG/4 ML VIAL ONE (12:46)
[2019-01-30] MEDS ORDERED: POTASSIUM 25 MEQ EFFERV TAB ONE (13:20)
[2019-01-30] MEDS ORDERED: KCL 20 MEQ/100 mL IVPB 20 MEQ/100 ML BAG IV ONE (13:20)
--- NOTE | 2019-01-30 14:30 | EDPHYS ---
Physician Documentation [facility] Name: Son Parker Age: 63 yrs Sex: Male : 1955 Arrival Date: 01/30/2019 Time: 10:36 Bed 16 Private MD: ED Physician Brody Paniagua HPI: 01/30 13:11 This 63 yrs old Male presents to ER via EMS with complaints of Fall Injury. rn 13:11 Details of fall: The patient fell from an upright position. Onset: The symptoms/episode rn began/occurred just prior to arrival. Associated injuries: The patient sustained injury to the head. 13:12 Severity of symptoms: At their worst the symptoms were mild, in the emergency rn department the symptoms are unchanged. The patient has not experienced similar symptoms in the past. The patient has been recently seen by a physician:. Historical: - Allergies: 10:43 No Known Allergies; bp - Home Meds: 10:43 Unable to obtain [Active]; bp - PMHx: 10:43 Diabetes - NIDDM; Hypertension; bp - Immunization history:: Adult Immunizations up to date. - Social history:: Smoking status: Patient/guardian denies using tobacco. - Family history:: not pertinent. - Ebola Screening: : No symptoms or risks identified at this time. - Hospitalizations: : No recent hospitalization is reported. ROS: 13:13 Constitutional: Negative for fever, chills, and weight loss, Eyes: Negative for injury, rn pain, redness, and discharge, ENT: + facial pain and injury Neck: Negative for injury, pain, and swelling, Cardiovascular: Negative for chest pain, palpitations, + edema Respiratory: Negative for shortness of breath, cough, wheezing, and pleuritic chest pain, Abdomen/GI: Negative for abdominal pain, nausea, vomiting, diarrhea, and constipation, MS/Extremity: Negative for injury and deformity, Skin: Negative for injury, rash, and discoloration, Neuro: + headache, + generalized weakness Exam: 13:13 Constitutional: This is a well developed, well nourished patient who is awake, alert, rn and in no acute distress. Head/Face: Normocephalic, + facial/lip contusions, no intraoral trauma Eyes: Pupils equal round and reactive to light, extra-ocular motions intact. Lids and lashes normal. Conjunctiva and sclera are non-icteric and not injected. Cornea within normal limits. Periorbital areas with no swelling, redness, or edema. ENT: + left upper lip contusion, no active bleeding Neck: In ccollar, no midline tenderness. Chest/axilla: Normal chest wall appearance and motion. Nontender with no deformity. No lesions are appreciated. Cardiovascular: Regular rate and rhythm. No pulse deficits. Respiratory: Lungs have equal breath sounds bilaterally, clear to auscultation, No increased work of breathing, no retractions or nasal flaring. Abdomen/GI: soft, non-tender MS/ Extremity: Pulses equal, no cyanosis. Neurovascular intact. Full, normal range of motion. Equal circumference. + 2+ pitting edema Neuro: Awake and alert, GCS 15, oriented to person, place, time, and situation. Cranial nerves II-XII grossly intact. Motor strength 5/5 in all extremities. Sensory grossly intact. Vital Signs: 10:41 BP 181 / 97; Pulse 55; Resp 16; Temp 98; Pulse Ox 100% ; Weight 88.9 kg; Height 5 ft. 6 bp in. (167.64 cm); 11:13 BP 165 / 85; Pulse 67; Resp 16; Temp 98; Pulse Ox 99% ; bp 12:17 BP 189 / 91; Pulse 60; Resp 18; Temp 98.1(O); Pulse Ox 93% ; Pain 7/10; mh5 12:54 BP 194 / 88; Pulse 80; Resp 18; Temp 97.8(O); Pulse Ox 100% on R/A; Pain 7/10; mh5 13:47 BP 176 / 99; Pulse 38; Resp 17; Temp 97.6(O); Pulse Ox 97% on R/A; Pain 4/10; mh5 14:34 BP 163 / 101; Pulse 45; Resp 15; Temp 98.0; Pulse Ox 95% on R/A; Pain 4/10; mh5 10:41 Body Mass Index 31.63 (88.90 kg, 167.64 cm) bp MDM: 10:51 Patient medically screened. rn 14:27 Differential diagnosis: closed head injury, contusion, fracture, sprain, strain. Data rn reviewed: vital signs, nurses notes, lab test result(s), EKG, radiologic studies, CT scan, plain films, and as a result, I will discharge patient. Counseling: I had a detailed discussion with the patient and/or guardian regarding: the historical points, exam findings, and any diagnostic results supporting the discharge/admit diagnosis, lab results, radiology results, the need for outpatient follow up, to return to the emergency department if symptoms worsen or persist or if there are any questions or concerns that arise at home. Response to treatment: the patient's symptoms have mildly improved after treatment, and as a result, I will discharge patient. Special discussion: Based on the patient's history, exam and DX evaluation, there is no indication for emergent intervention or inpatient TX. It is understood by the patient/guardian that if the SXs persist or worsen they need to return immediately for re-evaluation. I discussed with the patient/guardian in detail that at this point there is no indication for admission to the hospital. It is understood, however, that if the symptoms persist or worsen the patient needs to return immediately for re-evaluation. ED course: No acute finding on imaging, BNP elevated and low potassium, has chronically low potassium, told him to double up on lasix PO for next 2 days and f/u with cardiology and pcp. NO acute traumatic findings. . 01/30 11: Order name: CBC with Diff; Complete Time: 12:28 rn 01/30 11:02 Order name: Basic Metabolic Panel; Complete Time: 12:28 rn 01/30 11:03 Order name: Protime (+inr); Complete Time: 12:28 rn 01/30 11:03 Order name: Ptt, Activated; Complete Time: 12:28 01/30 11:03 Order name: N-Terminal Pro-brain Natriuretic Peptide; Complete Time: 12:28 rn 01/30 11:03 Order name: CT Head C Spine; Complete Time: 11:53 rn 01/30 11:02 Order name: IV Start; Complete Time: 11:14 rn 01/30 11:03 Order name: CT Facial Bones W/O Con; Complete Time: 11:53 rn 01/30 11:03 Order name: XRAY Chest (1 view); Complete Time: 11:53 rn Administered Medications: Discontinued: Potassium Chloride 20 mEq IV at calculated rate once; administer over 1-2 hours 13:00 Drug: Lasix 40 mg Route: IVP; Site: right hand; bp 13:20 Follow up: Response: No adverse reaction bp 13:00 Drug: Potassium Chloride 40 mEq Route: PO; bp 13:20 Follow up: Response: No adverse reaction bp 13:00 Drug: Potassium Chloride 20 mEq Route: IV; Rate: calculated rate; Site: right hand; bp Disposition: 01/30/19 14:29 Discharged to Home. Impression: Superficial injury of head, Facial contusion, Hypokalemia. - Condition is Stable. - Discharge Instructions: Edema, Facial or Scalp Contusion, Head Injury, Adult, Hypokalemia. - Medication Reconciliation Form, Thank You Letter, Antibiotic Education, Prescription Opioid Use form. - Follow up: Private Physician; When: As needed; Reason: Recheck today's complaints, Re-evaluation by your physician. - Problem is new. - Symptoms have improved. Signatures: Dispatcher [employer] EDMS Brody Paniagua MD MD rn Peltier, Brian, RN RN bp Corrections: (The following items were deleted from the chart) 14:47 14:29 01/30/2019 14:29 Discharged to Home. Impression: Superficial injury of head; bp Facial contusion; Hypokalemia. Condition is Stable. Forms are Medication Reconciliation Form, Thank You Letter, Antibiotic Education, Prescription Opioid Use. Follow up: Private Physician; When: As needed; Reason: Recheck today's complaints, Re-evaluation by your physician. Problem is new. Symptoms have improved. rn
--- NOTE | 2019-01-30 14:30 | ER ---
Nurse's Notes [facility] Name: Son Parker Age: 63 yrs Sex: Male : 1955 Arrival Date: 01/30/2019 Time: 10:36 Bed 16 Private MD: Diagnosis: Superficial injury of head;Facial contusion;Hypokalemia Presentation: 01/30 10:36 Presenting complaint: Patient states: called out at the Urology clinic, pt was in line hj when his R knee gave out, previous R knee fracture with R knee immobilizer and hurt his lumbar area, lower back; BGL- 292; 20 g R wrist; BP- 177/119; HR- 72; RR- 16;. Transition of care: patient was not received from another setting of care. Transition of care: patient was received from another setting of care (ambulatory primary care physician practice). Onset of symptoms was January 30, 2019. Risk Assessment: Do you want to hurt yourself or someone else? Patient reports no desire to harm self or others. Initial Sepsis Screen: Does the patient meet any 2 criteria? No. Patient's initial sepsis screen is negative. Does the patient have a suspected source of infection? No. Patient's initial sepsis screen is negative. Care prior to arrival: None. 10:36 Method Of Arrival: EMS: [facility] 10:36 Acuity: HEATHER 3 hj Triage Assessment: 10:40 General: Appears in no apparent distress. uncomfortable, obese, Behavior is bp cooperative, appropriate for age, anxious. Pain: Complains of pain in FACE, LOWER BACK. Historical: - Allergies: 10:43 No Known Allergies; bp - Home Meds: 10:43 Unable to obtain [Active]; bp - PMHx: 10:43 Diabetes - NIDDM; Hypertension; bp - Immunization history:: Adult Immunizations up to date. - Social history:: Smoking status: Patient/guardian denies using tobacco. - Family history:: not pertinent. - Ebola Screening: : No symptoms or risks identified at this time. - Hospitalizations: : No recent hospitalization is reported. Screenin:39 Abuse screen: Denies threats or abuse. Denies injuries from another. Nutritional bp screening: No deficits noted. Tuberculosis screening: No symptoms or risk factors identified. Fall Risk Fall in past 12 months (25 points). No secondary diagnosis (0 pts). IV access (20 points). Ambulatory Aid- None/Bed Rest/Nurse Assist (0 pts). Gait- Normal/Bed Rest/Wheelchair (0 pts) Mental Status- Oriented to own ability (0 pts). Total Snider Fall Scale indicates High Risk Score (45 or more points). Fall prevention measures have been instituted. Side Rails Up X 2 Placed Close to Nursing Station Frequent Obs/Assessments Occuring Family Present and informed to notify staff if the need to leave the bedside As available patient and family educated on Fall Prevention Program and Strategies. Assessment: 10:36 General: Appears in no apparent distress. uncomfortable, obese, Behavior is calm, bp cooperative, appropriate for age. Pain: Complains of pain in face. Neuro: Level of Consciousness is awake, alert, obeys commands, Oriented to person, place, time, situation, Appropriate for age. Cardiovascular: No deficits noted. Respiratory: Airway is patent Respiratory effort is even, unlabored, Respiratory pattern is regular, symmetrical. GI: No signs and/or symptoms were reported involving the gastrointestinal system. : No signs and/or symptoms were reported regarding the genitourinary system. EENT: UPPER LIP SWOLLEN. Derm: No deficits noted. Musculoskeletal: Circulation, motion, and sensation intact. Range of motion: intact in all extremities. 11:14 Reassessment: PT TO CT WITH INTERVENTIONAL SALE CONSULTANT. bp 11:35 Reassessment: PT RETURNED FROM RADIOLOGY, CLEARED FROM BACKBOARD BY JOSIANE MONTENEGRO. bp 13:00 Reassessment: ALL CURRENT ORDERS COMPLETED, DISPO PENDING. bp 14:42 Reassessment: PT D/C HOME VIA W/C WITH FAMILY, DX WITH SUPERFICIAL FACIAL INJURY AND bp HYPOKALEMIA. Vital Signs: 10:41 BP 181 / 97; Pulse 55; Resp 16; Temp 98; Pulse Ox 100% ; Weight 88.9 kg; Height 5 ft. 6 bp in. (167.64 cm); 11:13 BP 165 / 85; Pulse 67; Resp 16; Temp 98; Pulse Ox 99% ; bp 12:17 BP 189 / 91; Pulse 60; Resp 18; Temp 98.1(O); Pulse Ox 93% ; Pain 7/10; mh5 12:54 BP 194 / 88; Pulse 80; Resp 18; Temp 97.8(O); Pulse Ox 100% on R/A; Pain 7/10; mh5 13:47 BP 176 / 99; Pulse 38; Resp 17; Temp 97.6(O); Pulse Ox 97% on R/A; Pain 4/10; mh5 14:34 BP 163 / 101; Pulse 45; Resp 15; Temp 98.0; Pulse Ox 95% on R/A; Pain 4/10; mh5 10:41 Body Mass Index 31.63 (88.90 kg, 167.64 cm) bp ED Course: 10:36 Patient arrived in ED. hj 10:36 Kapil Caceres, YARELIS is Primary Nurse. bp 10:39 Inserted saline lock: 20 gauge in right hand, using aseptic technique. bp 10:39 Maintain EMS IV. Dressing intact. Good blood return noted. Site clean \T\ dry. Gauge \T\ bp site: 20 GAUGE R HAND. 10:39 Patient has correct armband on for positive identification. Bed in low position. Call bp light in reach. Side rails up X2. Adult w/ patient. 10:40 Triage completed. hj 10:51 Brody Paniagua MD is Attending Physician. rn 11:00 Arm band placed on. bp 11:17 CT completed. Patient tolerated procedure well. Patient moved to CT via stretcher. Patient moved back from CT. 11:20 CT Head C Spine In Process Unspecified. EDMS 11:20 CT Facial Bones W/O Con In Process Unspecified. EDMS 11:27 X-ray completed. Patient tolerated procedure well. Patient moved to radiology via stretcher. Patient moved back from radiology. 11:28 XRAY Chest (1 view) In Process Unspecified. EDMS 14:42 No provider procedures requiring assistance completed. IV discontinued, intact, bp bleeding controlled, No redness/swelling at site. Pressure dressing applied. Administered Medications: Discontinued: Potassium Chloride 20 mEq IV at calculated rate once; administer over 1-2 hours 13:00 Drug: Lasix 40 mg Route: IVP; Site: right hand; bp 13:20 Follow up: Response: No adverse reaction bp 13:00 Drug: Potassium Chloride 40 mEq Route: PO; bp 13:20 Follow up: Response: No adverse reaction bp 13:00 Drug: Potassium Chloride 20 mEq Route: IV; Rate: calculated rate; Site: right hand; bp Outcome: 14:29 Discharge ordered by . rn 14:46 Discharged to home via wheelchair, with family. bp 14:46 Condition: stable 14:46 Discharge instructions given to patient, family, Instructed on discharge instructions, follow up and referral plans. Demonstrated understanding of instructions, follow-up care. 14:47 Patient left the ED. bp Signatures: Dispatcher [employer] Asmita Eng Roman, MD MD rn Warren, Shannon sw Joaquin, Henry, RN RN Kriss Wooten [facility] Kapil Caceres RN RN bp
== END 2019-01-30 14:47 | disposition home or self-care (01) ==
LOC: ER 10:35
DX: S00.90XA Unspecified superficial injury of unspecified part of head, initial encounter (principal); S00.83XA Contusion of other part of head, initial encounter; W19.XXXA Unspecified fall, initial encounter; E87.6 Hypokalemia; E11.9 Type 2 diabetes mellitus without complications; I10 Essential (primary) hypertension
CPT/HCPCS: 36415; 70450; 70486; 71045; 72125; 76377; 80048; 83880; 85025; 85610; 85730; 96374; 96375; 99284; J1940

== ENCOUNTER 2019-02-07 11:51 | Emergency (ER) | payer OTHER ==
--- OUTSIDE RECORDS SUMMARY | 2019-02-07 11:53 | XMS REPORT ---
[...] Status Dosage System Date Date Tramadol HCl [facility] 85003439293 50 MG Orally Oct 31, Active 1 tablet as every 6 hrs 2019 needed Coreg ND 89483277948 25 MG Orally Active 1 tablet twice a day twice a day Vimovo [facility] 70054442565 500-20 MG Active 1 tablet Orally Twice a before day meals Aspirin Adult [facility] 55135281539 81 MG Orally Active 1 tablet Low Dose Once a day Saline Wound [facility] 53861600610 0.9 % Active as directed Wash Externally twice a day Gabapentin ND 93863728129 300 MG Orally Active 1 capsule Once a day Plavix [facility] 40241148945 75 MG Orally Active 1 tablet Once a day Clonidine HCl [facility] 42391820840 0.2 MG Orally May 31, Active 1 tablet three times a 2017 day Lisinopril [facility] 46252742822 40 MG Orally Active 1 tablet Once a day Clonidine HCl [facility] 92018159579 0.1 MG Orally March 15, Active 1 tablet at twice a day 2018 bedtime Amlodipine [facility] 21505015703 10 MG Orally Active 1 tablet Besylate Once a day Crestor [facility] 04142045636 5 MG Orally Oct 26, Active 1 tablet Once a day 2017 Potassium [facility] 50706874603 20 MEQ Active TAKE 1 Chloride Rossy TABLET BY ER MOUTH TWICE DAILY WITH FOOD Pravastatin [facility] 90985839822 40 MG Orally Active 1 tablet Sodium Once a day Zantac [facility] 39137725412 150 MG Orally Active 1 tablet at twice a day bedtime Results No Known Results Summary Purpose eClinicalWorks Submission
--- OUTSIDE RECORDS SUMMARY | 2019-02-07 11:53 | XMS REPORT ---
[...] Status Dosage System Date Date Amlodipine ND 43317853828 10 MG Orally Active 1 tablet Besylate Once a day Saline Wound ND 46965274914 0.9 % Active as directed Wash Externally twice a day Pravastatin ND 69963513349 40 MG Orally Active 1 tablet Sodium Once a day Potassium ND 69337505528 20 MEQ Orally May 31, Aug 29, Active 1 capsule Chloride twice a day 2017 2017 Lisinopril ND 36008106752 40 MG Orally Active 1 tablet Once a day Vimovo ND 25814331675 500-20 MG Active 1 tablet Orally Twice a before day meals Gabapentin [facility] 07844747182 300 MG Orally Active 1 capsule Once a day Zantac [facility] 51824057667 150 MG Orally Active 1 tablet at twice a day bedtime Plavix [facility] 14978658175 75 MG Orally Active 1 tablet Once a day Clonidine HCl [facility] 44428341166 0.2 MG Orally May 31, Active 1 tablet three times a 2018 day Aspirin Adult [facility] 60409043531 81 MG Orally Active 1 tablet Low Dose Once a day Crestor [facility] 62055454339 5 MG Orally Oct 26, Active 1 tablet Once a day 2017 Clonidine HCl [facility] 27384865183 0.1 MG Orally March 15, Active 1 tablet at twice a day 2018 bedtime Coreg [facility] 43137094601 25 MG Orally Active 1 tablet twice a day twice a day Results No Known Results Summary Purpose eClinicalWorks Submission
--- OUTSIDE RECORDS SUMMARY | 2019-02-07 11:53 | XMS REPORT ---
[...] Status Dosage System Date Date Clonidine HCl [facility] 13824089760 0.2 MG Orally May 31, Active 1 tablet three times a 2018 day Potassium [facility] 06400624319 20 MEQ Orally May 31, Aug 29, Active 1 capsule Chloride twice a day 2017 2017 Pravastatin ND 28751103777 40 MG Orally Active 1 tablet Sodium Once a day Zantac [facility] 36454755077 150 MG Orally Active 1 tablet twice a day at bedtime Clonidine HCl [facility] 59546238694 0.1 MG Orally March 15, Active 1 tablet twice a day 2018 at bedtime Lisinopril ND 59434810601 40 MG Orally Active 1 tablet Once a day Coreg [facility] 13028067947 25 MG Orally Active 1 tablet twice a day twice a day Gabapentin [facility] 41675511821 300 MG Orally Active 1 capsule Once a day Plavix [facility] 53323376484 75 MG Orally Active 1 tablet Once a day Amlodipine [facility] 02392793800 10 MG Orally Active 1 tablet Besylate Once a day Results No Known Results Summary Purpose eClinicalWorks Submission
--- OUTSIDE RECORDS SUMMARY | 2019-02-07 11:53 | XMS REPORT ---
[...] Medications Results No Known Results Summary Purpose [employer] Submission
--- OUTSIDE RECORDS SUMMARY | 2019-02-07 11:53 | XMS REPORT ---
[...] Date Status Dosage System Date [facility] M20 [facility] 57274437358 20 MEQ Orally April 08, May 08, Active 1 tablet Twice a day 2017 2017 with food Results No Known Results Summary Purpose eClinicalWorks Submission
--- OUTSIDE RECORDS SUMMARY | 2019-02-07 11:54 | XMS REPORT ---
[...] Status Dosage System Date Date Zantac ND 49458172939 150 MG Orally Active 1 tablet at twice a day bedtime Clonidine HCl ND 33127695919 0.2 MG Orally Active 1 tablet three times a day Amlodipine ND 13209073026 10 MG Orally Active 1 tablet Besylate Once a day Potassium ND 68864185755 20 MEQ Orally Nov 11, Active 1 tablet Chloride ER twice a day 2019 with food Potassium ND 63214184915 20 MEQ Active TAKE 1 Chloride Rossy TABLET BY ER MOUTH TWICE DAILY WITH FOOD Clonidine HCl ND 35627105115 0.1 MG Orally March 15, Active 1 tablet at twice a day 2018 bedtime Crestor [facility] 82089565821 5 MG Orally Oct 26, Active 1 tablet Once a day 2017 Lisinopril [facility] 74258491986 40 MG Orally Active 1 tablet Once a day Tramadol HCl [facility] 10397161651 50 MG Orally Active 1 tablet as every 6 hrs needed Pravastatin [facility] 58532670484 40 MG Orally Active 1 tablet Sodium Once a day Telmisartan [facility] 53918390106 80 MG Orally Nov 11, Active 1 tablet Once a day 2018 Plavix [facility] 01289022134 75 MG Orally Active 1 tablet Once a day Coreg [facility] 53068063911 25 MG Orally Active 1 tablet twice a day twice a day Vimovo [facility] 28427912386 500-20 MG Active 1 tablet Orally Twice a before day meals Aspirin Adult [facility] 70586945441 81 MG Orally Active 1 tablet Low Dose Once a day Gabapentin [facility] 72558568488 300 MG Orally Active 1 capsule Once a day Saline Wound [facility] 43078453922 0.9 % Active as directed Wash Externally twice a day Results No Known Results Summary Purpose [employer]ClinicalWorks Submission
--- OUTSIDE RECORDS SUMMARY | 2019-02-07 11:54 | XMS REPORT ---
[...] End Status Dosage System Date Date Lisinopril [facility] 07183983120 40 MG Orally Active 1 tablet Once a day Clonidine HCl [facility] 74101588685 0.1 MG Orally March 15, Active 1 tablet at twice a day 2018 bedtime Coreg [facility] 35725514158 25 MG Orally Active 1 tablet twice a day twice a day Vimovo [facility] 10912827983 500-20 MG Active 1 tablet Orally Twice a before day meals Potassium [facility] 62759887079 20 MEQ Active TAKE 1 Chloride Rossy TABLET BY ER MOUTH TWICE DAILY WITH FOOD Plavix [facility] 02619009838 75 MG Orally Active 1 tablet Once a day Pravastatin [facility] 74214320643 40 MG Orally Active 1 tablet Sodium Once a day Zantac [facility] 86321021639 150 MG Orally Active 1 tablet at twice a day bedtime Clonidine HCl [facility] 11905446036 0.2 MG Orally Active 1 tablet three times a day Aspirin Adult [facility] 55341149802 81 MG Orally Active 1 tablet Low Dose Once a day Telmisartan [facility] 24617944053 80 MG Orally Nov 11, Active 1 tablet Once a day 2018 Amlodipine [facility] 19439991818 10 MG Orally Active 1 tablet Besylate Once a day Gabapentin [facility] 85641901080 300 MG Orally Active 1 capsule Once a day Saline Wound [facility] 30959846430 0.9 % Active as directed Wash Externally twice a day Crestor [facility] 65536693665 5 MG Orally Oct 26, Active 1 tablet Once a day 2017 Potassium [facility] 09835504356 20 MEQ Orally Nov 11, Active 1 tablet Chloride ER twice a day 2018 with food Results No Known Results Summary Purpose eClinicalWorks Submission
--- OUTSIDE RECORDS SUMMARY | 2019-02-07 11:54 | XMS REPORT ---
:1955 Author Organization [facility] Address [address] Yang [address] [place] [id number] Care Team Providers Name Role Phone Unavailable Unavailable Unavailable Problems This patient has no known problems. Allergies, Adverse Reactions, Alerts This patient has no known allergies or adverse reactions. Medications This patient has no known medications.
[2019-02-07] MEDS ORDERED: KCL 20 MEQ/100 mL IVPB 20 MEQ/100 ML BAG IV ONE (14:19)
[2019-02-07] MEDS ORDERED: NA CHLORIDE 0.9% 250 ML ONE (14:19)
[2019-02-07] MEDS ORDERED: POTASSIUM 25 MEQ EFFERV TAB ONE (14:19)
--- NOTE | 2019-02-07 16:45 | EDPHYS ---
Physician Documentation [facility] Name: Son Parker Age: 63 yrs Sex: Male : 1955 Arrival Date: 02/07/2019 Time: 11:53 Bed 20 Private MD: Abisai Patterson ED Physician Tariq Hopper HPI: 02/07 14:15 This 63 yrs old Male presents to ER via Wheelchair with complaints of Abnormal pm1 Lab Results. 14:15 Presenting today with a complaint of hypokalemia . Onset: The symptoms/episode pm1 began/occurred today. Severity of symptoms: in the emergency department the symptoms Patient without any complaints other than abnormal lab value, Pain is currently a 0 / 10. The patient has experienced similar episodes in the past, several times. The patient has been recently seen by a physician: the patient's primary care provider, Dr. Patterson. Patient with lab draw today and was told to report to the ER because his potassium level was low. Patient takes lasix and potassium supplementation. Historical: - Allergies: 12:35 No Known Allergies; tw2 - PMHx: 12:35 Diabetes - NIDDM; Hypertension; tw2 - Immunization history:: Adult Immunizations. - Social history:: Smoking status: . - Ebola Screening: : Patient denies travel to an Ebola-affected area in the 21 days before illness onset. ROS: 14:15 Constitutional: Negative for fever, chills, and weight loss, Eyes: Negative for injury, pm1 pain, redness, and discharge, ENT: Negative for injury, pain, and discharge, Neck: Negative for injury, pain, and swelling, Cardiovascular: Negative for chest pain, palpitations, Positive for chronic pedal edema Respiratory: Negative for shortness of breath, cough, wheezing, and pleuritic chest pain, Abdomen/GI: Negative for abdominal pain, nausea, vomiting, diarrhea, and constipation, Back: Negative for injury and pain, : Negative for injury, bleeding, discharge, and swelling, MS/Extremity: Negative for injury and deformity, Skin: Negative for injury, rash, and discoloration, Neuro: Negative for headache, weakness, numbness, tingling, and seizure. Exam: 14:15 Constitutional: This is a well developed, well nourished patient who is awake, alert, pm1 and in no acute distress. Head/Face: Normocephalic, atraumatic. Eyes: Pupils equal round and reactive to light, extra-ocular motions intact. Lids and lashes normal. Conjunctiva and sclera are non-icteric and not injected. Cornea within normal limits. Periorbital areas with no swelling, redness, or edema. ENT: Nares patent. No nasal discharge, no septal abnormalities noted. Tympanic membranes are normal and external auditory canals are clear. Oropharynx with no redness, swelling, or masses, exudates, or evidence of obstruction, uvula midline. Mucous membranes moist. Neck: Trachea midline, no thyromegaly or masses palpated, and no cervical lymphadenopathy. Supple, full range of motion without nuchal rigidity, or vertebral point tenderness. No Meningismus. Chest/axilla: Normal chest wall appearance and motion. Nontender with no deformity. No lesions are appreciated. Respiratory: Lungs have equal breath sounds bilaterally, clear to auscultation and percussion. No rales, rhonchi or wheezes noted. No increased work of breathing, no retractions or nasal flaring. Abdomen/GI: Soft, non-tender, with normal bowel sounds. No distension or tympany. No guarding or rebound. No evidence of tenderness throughout. Back: No spinal tenderness. No costovertebral tenderness. Full range of motion. 14:15 Skin: Warm, dry with normal turgor. Normal color with no rashes, no lesions, and no evidence of cellulitis. MS/ Extremity: Pulses equal, no cyanosis. Neurovascular intact. Full, normal range of motion. 14:15 Cardiovascular: Rate: bradycardic, Rhythm: regular, Pulses: no pulse deficits are appreciated, Edema: pedal edema, that is mild. 14:15 Neuro: Orientation: is normal, Motor: is normal, moves all fours. Vital Signs: 12:34 BP 147 / 86; Pulse 80; Resp 16; Temp 99.0(O); Pulse Ox 95% on R/A; Weight 99.79 kg; tw2 Height 5 ft. 7 in. (170.18 cm); Pain 7/10; 13:10 BP 175 / 71; Pulse 63; Resp 16; Pulse Ox 99% on R/A; Pain 0/10; em 14:00 BP 208 / 99; Pulse 44; Resp 18; Pulse Ox 99% on R/A; em 15:23 BP 155 / 90; Pulse 58; Resp 16; Pulse Ox 99% on R/A; Pain 0/10; em 16:30 BP 163 / 84; Pulse 53; Resp 18; Pulse Ox 99% on R/A; em 12:34 Body Mass Index 34.46 (99.79 kg, 170.18 cm) tw2 12:34 "and my back hurts too when i get up because my knees are giving out on me and so my tw2 back is taking the weight" MDM: 13:15 Patient medically screened. pm1 16:19 Data reviewed: vital signs. Data interpreted: Pulse oximetry: on room air is 99 %. pm1 Interpretation: normal. 16:44 Counseling: I had a detailed discussion with the patient and/or guardian regarding: the pm1 historical points, exam findings, and any diagnostic results supporting the discharge/admit diagnosis, the need for outpatient follow up, to return to the emergency department if symptoms worsen or persist or if there are any questions or concerns that arise at home. 02/07 13:20 Order name: IV Saline Lock; Complete Time: 14:21 pm1 Administered Medications: 14:21 Drug: Potassium Effervescent Tablet 50 mEq Route: PO; em 14:21 Drug: Potassium Chloride 20 mEq Route: IV; Rate: calculated rate; Site: right em antecubital; Disposition: 02/07/19 16:44 Discharged to Home. Impression: Hypokalemia. - Condition is Stable. - Discharge Instructions: Hypokalemia. - Medication Reconciliation Form, Thank You Letter, Antibiotic Education, Prescription Opioid Use form. - Follow up: Emergency Department; When: As needed; Reason: Worsening of condition. Follow up: Private Physician; When: 2 - 3 days; Reason: Recheck today's complaints, Continuance of care, Re-evaluation by your physician. - Problem is new. - Symptoms have improved. Addendum: 02/08/2019 19:29 Co-signature as Attending Physician, Tariq Hopper MD I agree with the assessment and k dr plan of care. Signatures: Tariq Hopper MD MD [facility] Willie Augustine, GEOPHYSICAL DRAFTER GEOPHYSICAL DRAFTER em Marcelo Wing, ALLERGIST ALLERGIST pm1 Whit Van RN RN tw2 Corrections: (The following items were deleted from the chart) 02/07 17:03 16:44 02/07/2019 16:44 Discharged to Home. Impression: Hypokalemia. Condition is em Stable. Forms are Medication Reconciliation Form, Thank You Letter, Antibiotic Education, Prescription Opioid Use. Follow up: Emergency Department; When: As needed; Reason: Worsening of condition. Follow up: Private Physician; When: 2 - 3 days; Reason: Recheck today's complaints, Continuance of care, Re-evaluation by your physician. Problem is new. Symptoms have improved. pm1
--- NOTE | 2019-02-07 16:45 | ER ---
Nurse's Notes [facility] Name: Son Parker Age: 63 yrs Sex: Male : 1955 Arrival Date: 02/07/2019 Time: 11:53 Bed 20 Private MD: Abisai Patterson Diagnosis: Hypokalemia Presentation: 02/07 12:29 Transition of care: patient was not received from another setting of care. Onset of tw2 symptoms was February 07, 2019. Risk Assessment: Do you want to hurt yourself or someone else? Patient reports no desire to harm self or others. Initial Sepsis Screen: Does the patient meet any 2 criteria? No. Patient's initial sepsis screen is negative. Does the patient have a suspected source of infection? No. Patient's initial sepsis screen is negative. Care prior to arrival: None. 12:29 Method Of Arrival: Wheelchair tw2 12:29 Presenting complaint: pts granddaughter states "he got his blood drawn this morning at tw2 said his Potassium was 2.6 and to come to the ER for evaluation", "it was just his regular labs". 12:29 Acuity: HEATHER 2 tw2 Triage Assessment: 12:30 General: Appears in no apparent distress. Behavior is calm, cooperative, appropriate tw2 for age. Pain: Denies pain. Musculoskeletal: Parent/caregiver report the patient having "he has missing cartilage in his knees and a fracture and has some swelling and fluid in his knees". Historical: - Allergies: 12:35 No Known Allergies; tw2 - PMHx: 12:35 Diabetes - NIDDM; Hypertension; tw2 - Immunization history:: Adult Immunizations. - Social history:: Smoking status: . - Ebola Screening: : Patient denies travel to an Ebola-affected area in the 21 days before illness onset. Screenin:13 Abuse screen: Denies threats or abuse. Nutritional screening: No deficits noted. em Tuberculosis screening: No symptoms or risk factors identified. Fall Risk None identified. Assessment: 13:10 General: Appears in no apparent distress. comfortable, Behavior is calm, cooperative. em Pain: Denies pain. Neuro: Level of Consciousness is awake, alert, obeys commands, Oriented to person, place, time, situation. Cardiovascular: Capillary refill < 3 seconds Patient's skin is warm and dry. Edema is 3+ to left midcalf, left ankle, left foot, right midcalf, right ankle and right foot Rhythm is irregular. Respiratory: Airway is patent Respiratory effort is even, unlabored, Respiratory pattern is regular, symmetrical, Breath sounds are clear bilaterally. GI: Abdomen is round non-distended. Derm: Skin is intact, is healthy with good turgor, Skin is pink, warm \\T\\ dry. Musculoskeletal: Range of motion: intact in all extremities. 13:15 Reassessment: The previous assessment is accurate, call light remains within reach. ss 14:20 Reassessment: Patient appears in no apparent distress at this time. Patient and/or em family updated on plan of care and expected duration. Pain level reassessed. Patient is alert, oriented x 3, equal unlabored respirations, skin warm/dry/pink. 15:13 Reassessment: Patient appears in no apparent distress at this time. Patient and/or em family updated on plan of care and expected duration. Pain level reassessed. Patient is alert, oriented x 3, equal unlabored respirations, skin warm/dry/pink. 16:15 Reassessment: Patient appears in no apparent distress at this time. Patient and/or em family updated on plan of care and expected duration. Pain level reassessed. Patient is alert, oriented x 3, equal unlabored respirations, skin warm/dry/pink. Vital Signs: 12:34 BP 147 / 86; Pulse 80; Resp 16; Temp 99.0(O); Pulse Ox 95% on R/A; Weight 99.79 kg; tw2 Height 5 ft. 7 in. (170.18 cm); Pain 7/10; 13:10 BP 175 / 71; Pulse 63; Resp 16; Pulse Ox 99% on R/A; Pain 0/10; em 14:00 BP 208 / 99; Pulse 44; Resp 18; Pulse Ox 99% on R/A; em 15:23 BP 155 / 90; Pulse 58; Resp 16; Pulse Ox 99% on R/A; Pain 0/10; em 16:30 BP 163 / 84; Pulse 53; Resp 18; Pulse Ox 99% on R/A; em 12:34 Body Mass Index 34.46 (99.79 kg, 170.18 cm) tw2 12:34 "and my back hurts too when i get up because my knees are giving out on me and so my tw2 back is taking the weight" ED Course: 11:53 Patient arrived in ED. rg4 11:53 Abisai Patterson MD is Private Physician. rg4 12:30 Triage completed. tw2 12:30 Arm band placed on. tw2 12:41 Willie Augustine LVN is Primary Nurse. em 12:44 Marcelo Wing NP is PHCP. pm1 12:44 Tariq Hopper MD is Attending Physician. pm1 12:44 EKG done, by sow farm barn technician. reviewed by Tariq Hopper MD times two. at1 13:45 Patient has correct armband on for positive identification. Bed in low position. Call em light in reach. Side rails up X2. monitor and storage bin tender on. Pulse ox on. NIBP on. 14:15 Inserted saline lock: 20 gauge in right antecubital area, using aseptic technique. em 17:01 No provider procedures requiring assistance completed. IV discontinued, intact, em bleeding controlled, No redness/swelling at site. Pressure dressing applied. Administered Medications: 14:21 Drug: Potassium Effervescent Tablet 50 mEq Route: PO; em 14:21 Drug: Potassium Chloride 20 mEq Route: IV; Rate: calculated rate; Site: right em antecubital; Outcome: 16:44 Discharge ordered by MD. pm1 17:02 Discharged to home via wheelchair, with family. em 17:02 Condition: good 17:02 Discharge instructions given to patient, family, Instructed on discharge instructions, follow up and referral plans. Demonstrated understanding of instructions, follow-up care. 17:03 Patient left the ED. em Signatures: Willie Augustine LVN LVN em Josette Agee, RN RN Susy Spain, editor publications EKG Tat1 Marcelo Wing NP BOX PULLER pm1 Whit Van RN RN tw2 Edel Cervantes rg4
--- NOTE | 2019-02-09 08:49 | EKG ---
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: [employer] MEASUREMENT RESULTS: Intervals: Rate: 62 [place]: 140 QRSD: 80 QT: 426 QTc: 432 [place]: P: 4 [place]: 140 QRS: 5 T: -25 INTERPRETIVE STATEMENTS: Sinus rhythm with blocked premature atrial complexes with premature ventricular complexes or fusion complexes Moderate voltage criteria for LVH, may be normal variant Nonspecific ST and T wave abnormality Abnormal ECG Compared to ECG 02/07/2019 12:43:39 Atrial premature complex(es) now present Fusion complex(es) now present Ventricular premature complex(es) now present Possible ischemia no longer present ST (T wave) deviation still present Electronically Signed On 02-09-19 08:47:31 CDT by Kevin Funes
--- NOTE | 2019-02-09 08:49 | EKG ---
Test Date: 2019-02-07 Test Time: 12:43:39 Studio Producer: SOCORRO MEASUREMENT RESULTS: Intervals: Rate: 85 [place]: QRSD: 82 QT: 380 QTc: 452 [place]: P: [place]: QRS: 8 T: -45 INTERPRETIVE STATEMENTS: Undetermined rhythm Minimal voltage criteria for LVH, may be normal variant ST & T wave abnormality, consider inferior ischemia Abnormal ECG No previous ECG available for comparison Electronically Signed On 02-09-19 08:47:32 CDT by Kevin Funes
== END 2019-02-07 17:03 | disposition home or self-care (01) ==
LOC: ER 11:51
DX: E87.6 Hypokalemia (principal); E11.9 Type 2 diabetes mellitus without complications; I10 Essential (primary) hypertension
CPT/HCPCS: 93005; 96374; 99284

== ENCOUNTER 2019-02-09 11:39 | Inpatient (IN) | payer OTHER ==
--- OUTSIDE RECORDS SUMMARY | 2019-02-09 11:41 | XMS REPORT ---
[...] Status Dosage System Date Date Tramadol HCl [facility] 67489547479 50 MG Orally Oct 31, Active 1 tablet as every 6 hrs 2019 needed Coreg ND 25797976498 25 MG Orally Active 1 tablet twice a day twice a day Vimovo [facility] 04159207205 500-20 MG Active 1 tablet Orally Twice a before day meals Aspirin Adult [facility] 27359313959 81 MG Orally Active 1 tablet Low Dose Once a day Saline Wound [facility] 89318785696 0.9 % Active as directed Wash Externally twice a day Gabapentin ND 13482227085 300 MG Orally Active 1 capsule Once a day Plavix [facility] 85109327702 75 MG Orally Active 1 tablet Once a day Clonidine HCl [facility] 09564545621 0.2 MG Orally May 31, Active 1 tablet three times a 2017 day Lisinopril [facility] 59506762022 40 MG Orally Active 1 tablet Once a day Clonidine HCl [facility] 22946037753 0.1 MG Orally March 15, Active 1 tablet at twice a day 2018 bedtime Amlodipine [facility] 85434275229 10 MG Orally Active 1 tablet Besylate Once a day Crestor [facility] 33559142555 5 MG Orally Oct 26, Active 1 tablet Once a day 2017 Potassium [facility] 54766905763 20 MEQ Active TAKE 1 Chloride Rossy TABLET BY ER MOUTH TWICE DAILY WITH FOOD Pravastatin [facility] 26266489284 40 MG Orally Active 1 tablet Sodium Once a day Zantac [facility] 66314697174 150 MG Orally Active 1 tablet at twice a day bedtime Results No Known Results Summary Purpose eClinicalWorks Submission
--- OUTSIDE RECORDS SUMMARY | 2019-02-09 11:41 | XMS REPORT ---
[...] Status Dosage System Date Date Amlodipine ND 48060711229 10 MG Orally Active 1 tablet Besylate Once a day Saline Wound ND 94124312431 0.9 % Active as directed Wash Externally twice a day Pravastatin ND 70090540694 40 MG Orally Active 1 tablet Sodium Once a day Potassium ND 94951024555 20 MEQ Orally May 31, Aug 29, Active 1 capsule Chloride twice a day 2017 2017 Lisinopril ND 43130923985 40 MG Orally Active 1 tablet Once a day Vimovo ND 79216232724 500-20 MG Active 1 tablet Orally Twice a before day meals Gabapentin [facility] 47010076733 300 MG Orally Active 1 capsule Once a day Zantac [facility] 33167400938 150 MG Orally Active 1 tablet at twice a day bedtime Plavix [facility] 54430308677 75 MG Orally Active 1 tablet Once a day Clonidine HCl [facility] 81940688211 0.2 MG Orally May 31, Active 1 tablet three times a 2018 day Aspirin Adult [facility] 93842334504 81 MG Orally Active 1 tablet Low Dose Once a day Crestor [facility] 94910013764 5 MG Orally Oct 26, Active 1 tablet Once a day [address] [facility] 59774411553 0.1 MG Orally March 15, Active 1 tablet at twice a day 2018 bedtime Coreg [facility] 79835232066 25 MG Orally Active 1 tablet twice a day twice a day Results No Known Results Summary Purpose eClinicalWorks Submission
--- OUTSIDE RECORDS SUMMARY | 2019-02-09 11:41 | XMS REPORT ---
[...] End Status Dosage System Date Date Lisinopril [facility] 65169197007 40 MG Orally Active 1 tablet Once a day Clonidine HCl [facility] 43213031170 0.1 MG Orally March 15, Active 1 tablet at twice a day 2018 bedtime Coreg [facility] 22481926149 25 MG Orally Active 1 tablet twice a day twice a day Vimovo [facility] 20875984705 500-20 MG Active 1 tablet Orally Twice a before day meals Potassium [facility] 07152377205 20 MEQ Active TAKE 1 Chloride Rossy TABLET BY ER MOUTH TWICE DAILY WITH FOOD Plavix [facility] 91926041648 75 MG Orally Active 1 tablet Once a day Pravastatin [facility] 70948425970 40 MG Orally Active 1 tablet Sodium Once a day Zantac [facility] 84923796694 150 MG Orally Active 1 tablet at twice a day bedtime Clonidine HCl [facility] 04396094421 0.2 MG Orally Active 1 tablet three times a day Aspirin Adult [facility] 94639164223 81 MG Orally Active 1 tablet Low Dose Once a day Telmisartan [facility] 29415028933 80 MG Orally Nov 11, Active 1 tablet Once a day [address] [facility] 11938107113 10 MG Orally Active 1 tablet Besylate Once a day Gabapentin [facility] 73864453121 300 MG Orally Active 1 capsule Once a day Saline Wound [facility] 97845156360 0.9 % Active as directed Wash Externally twice a day Crestor [facility] 40433120184 5 MG Orally Oct 26, Active 1 tablet Once a day [address] [facility] 13253078500 20 MEQ Orally Nov 11, Active 1 tablet Chloride ER twice a day 2018 with food Results No Known Results Summary Purpose eClinicalWorks Submission
--- OUTSIDE RECORDS SUMMARY | 2019-02-09 11:41 | XMS REPORT ---
[...] Medications Results No Known Results Summary Purpose [employer] Submission
--- OUTSIDE RECORDS SUMMARY | 2019-02-09 11:41 | XMS REPORT ---
[...] End Date Status Dosage System Date [facility] M20 [facility] 53792624806 20 MEQ Orally April 08, May 08, Active 1 tablet Twice a day 2017 2017 with food Results No Known Results Summary Purpose eClinicalWorks Submission
--- OUTSIDE RECORDS SUMMARY | 2019-02-09 11:41 | XMS REPORT ---
[...] Status Dosage System Date Date Clonidine HCl [facility] 94291895258 0.2 MG Orally May 31, Active 1 tablet three times a 2018 day Potassium [facility] 06468274768 20 MEQ Orally May 31, Aug 29, Active 1 capsule Chloride twice a day 2017 2017 Pravastatin ND 02067405073 40 MG Orally Active 1 tablet Sodium Once a day Zantac [facility] 50150862274 150 MG Orally Active 1 tablet twice a day at bedtime Clonidine HCl [facility] 60940658422 0.1 MG Orally March 15, Active 1 tablet twice a day 2018 at bedtime Lisinopril ND 18296654006 40 MG Orally Active 1 tablet Once a day Coreg [facility] 99245021267 25 MG Orally Active 1 tablet twice a day twice a day Gabapentin [facility] 74742823500 300 MG Orally Active 1 capsule Once a day Plavix [facility] 30629388791 75 MG Orally Active 1 tablet Once a day Amlodipine [facility] 59462263668 10 MG Orally Active 1 tablet Besylate Once a day Results No Known Results Summary Purpose eClinicalWorks Submission
--- OUTSIDE RECORDS SUMMARY | 2019-02-09 11:42 | XMS REPORT ---
[...] Status Dosage System Date Date Zantac ND 63181151223 150 MG Orally Active 1 tablet at twice a day bedtime Clonidine HCl ND 71369038126 0.2 MG Orally Active 1 tablet three times a day Amlodipine ND 69699274973 10 MG Orally Active 1 tablet Besylate Once a day Potassium ND 32207767318 20 MEQ Orally Nov 11, Active 1 tablet Chloride ER twice a day 2019 with food Potassium ND 14778619767 20 MEQ Active TAKE 1 Chloride Rossy TABLET BY ER MOUTH TWICE DAILY WITH FOOD Clonidine HCl ND 69012276163 0.1 MG Orally March 15, Active 1 tablet at twice a day 2018 bedtime Crestor [facility] 02276722621 5 MG Orally Oct 26, Active 1 tablet Once a day 2017 Lisinopril [facility] 44606677020 40 MG Orally Active 1 tablet Once a day Tramadol HCl [facility] 10756879088 50 MG Orally Active 1 tablet as every 6 hrs needed Pravastatin [facility] 35108467663 40 MG Orally Active 1 tablet Sodium Once a day Telmisartan [facility] 85373046496 80 MG Orally Nov 11, Active 1 tablet Once a day 2018 Plavix [facility] 63613042254 75 MG Orally Active 1 tablet Once a day Coreg [facility] 55367381481 25 MG Orally Active 1 tablet twice a day twice a day Vimovo [facility] 71098936737 500-20 MG Active 1 tablet Orally Twice a before day meals Aspirin Adult [facility] 21821039459 81 MG Orally Active 1 tablet Low Dose Once a day Gabapentin [facility] 82194404357 300 MG Orally Active 1 capsule Once a day Saline Wound [facility] 97562767091 0.9 % Active as directed Wash Externally twice a day Results No Known Results Summary Purpose eClinicalWorks Submission
--- OUTSIDE RECORDS SUMMARY | 2019-02-09 11:42 | XMS REPORT ---
:1955 [facility] Yang [address] [place] [address] Care Team Providers Name Role Phone Unavailable Unavailable Unavailable Problems This patient has no known problems. Allergies, Adverse Reactions, Alerts This patient has no known allergies or adverse reactions. Medications This patient has no known medications.
[2019-02-09 12:14] LABS: Absolute Lymphocytes (CBC) 0.8 K/uL (0.7-4.9); Absolute Monocytes 0.4 K/uL (0.1-1.3); Absolute Neutrophil 4.7 K/uL (1.8-8.0); Basophils % 0.3 % (0-1.3); Eosinophils % 0.2 % (0-4.4); Hematocrit 30.9 % (39.6-49.0); Lymphocytes % 12.8 % (15.3-44.8); MPV 8.7 fL (7.6-11.3); Monocytes % 7.3 % (3.3-12.3); RBC Red Blood Cell Count 3.37 M/uL (4.33-5.43)
[2019-02-09 12:15] LABS: Protime INR 1.13
[2019-02-09] MEDS ORDERED: FUROSEMIDE 40 MG/4 ML VIAL ONE (12:34)
--- NOTE | 2019-02-09 12:36 | RAD REPORT ---
EXAM DESCRIPTION: RAD - Chest Single View - 02/09/2019 12:23 pm CLINICAL HISTORY: CHEST PAIN Chest pain. COMPARISON: Chest Single View dated 01/30/2019; Chest Single View dated 12/31/2018 FINDINGS: Portable technique limits examination quality. The lungs are emphysematous but grossly clear. Mild linear opacities in left lung base likely represe nt atelectasis. The heart is moderately enlarged. No displaced fractures. IMPRESSION: No acute intrathoracic process suspected.
[2019-02-09 12:47] LABS: ALT/SGPT 17 U/L (12-78); AST/SGOT 13 U/L (15-37); Albumin 3.1 g/dL (3.4-5.0); Alkaline Phosphatase 83 U/L (45-117); BUN Blood Urea Nitrogen 15 mg/dL (7-18); Bicarbonate 34 mmol/L (21-32); Bilirubin Direct 0.1 mg/dL (0-0.2); Bilirubin Total 0.3 mg/dL (0.2-1.0); Glucose Level 205 mg/dL (74-106); Magnesium 1.5 mg/dL (1.8-2.4); NT PRO-BNP 3501 pg/mL (<125); Protein, Total 6.3 g/dL (6.4-8.2); Sodium Level 148 mmol/L (136-145); Troponin (Emerg Dept Use Only) 0.31 ng/mL (0.0-0.045)
[2019-02-09 12:51] LABS: Potassium 2.2 mmol/L (3.5-5.1)
[2019-02-09] MEDS ORDERED: MAGNESIUM SULFATE 1 gm IVPB 1 GM/100 ML BAG IV ONE (13:18)
[2019-02-09] MEDS ORDERED: KCL 20 MEQ/100 mL IVPB 40 MEQ/200 ML BAG IV ONE (13:18)
[2019-02-09] MEDS ORDERED: POTASSIUM 25 MEQ EFFERV TAB ONE (13:18)
[2019-02-09] MEDS ORDERED: ASPIRIN 81 MG CHEWABLE TABLET ONE (13:18)
--- NOTE | 2019-02-09 13:31 | EDPHYS ---
Physician Documentation [facility] Name: Son Parker Age: 63 yrs Sex: Male : 1955 Arrival Date: 02/09/2019 Time: 11:39 Bed 17 Private MD: ED Physician Sohail Adams HPI: 02/09 12:26 This 63 yrs old Male presents to ER via Wheelchair with complaints of snw Dizziness, Chest Pain, Shortness Of Breath. 12:26 The patient presents with dizziness, generalized weakness. Onset: The symptoms/episode snw began/occurred suddenly, at 04:00, and became persistent. Context: occurred at home, occurred while the patient was at rest. Modifying factors: The symptoms are alleviated by nothing. Associated signs and symptoms: Pertinent positives: chest pain, shortness of breath. Severity of symptoms: At their worst the symptoms were moderate. Patient's baseline: Neuro: alert and fully oriented, Ambulation: walks without assistance. The patient has experienced a previous episode. The patient has been recently seen at the [facility], this week, for unrelated complaints, dx with hypokalemia. Historical: - Allergies: 12:17 No Known Allergies; em - Home Meds: 12:17 potassium chloride 20 mEq Oral pack 1 packet 3 times per day [Active]; ranitidine HCl em 150 mg Oral tab 1 tab 2 times per day [Active]; amlodipine 10 mg tab 1 tab once daily [Active]; metformin 500 mg Oral tab 1 tab 2 times per day [Active]; Bactrim DS 800-160 mg Oral tab [Active]; baclofen 10 mg Oral tab 1 tab 3 times per day [Active]; clonidine HCl 0.2 mg Oral tab 1 tab 3 times per day [Active]; carvedilol 25 mg oral tab 1 tab 2 times per day [Active]; Flomax 0.4 mg Oral cp24 1 cap once daily [Active]; aspirin 81 mg Oral chew 1 tab once daily [Active]; clopidogrel 75 mg oral tab 1 tab once daily [Active]; glipizide 10 mg Oral tab 1 tab once daily [Active]; telmisartan 80 mg oral tab 1 tab once daily [Active]; Lasix 40 mg Oral tab 1 tab once daily [Active]; - PMHx: 12:17 Diabetes - NIDDM; Hypertension; em - PSHx: 12:17 Knee surgery; em - Immunization history:: Adult Immunizations up to date. - Social history:: Smoking status: Patient/guardian denies using tobacco. - Ebola Screening: : Patient negative for fever greater than or equal to 101.5 degrees Fahrenheit, and additional compatible Ebola Virus Disease symptoms Patient denies exposure to infectious person Patient denies travel to an Ebola-affected area in the 21 days before illness onset No symptoms or risks identified at this time. ROS: 12:25 Eyes: Negative for injury, pain, redness, and discharge, ENT: Negative for injury, snw pain, and discharge, Neck: Negative for injury, pain, and swelling. 12:25 Abdomen/GI: Negative for abdominal pain, nausea, vomiting, diarrhea, and constipation, Back: Negative for injury and pain, : Negative for injury, bleeding, discharge, and swelling, MS/Extremity: Negative for injury and deformity, Skin: Negative for injury, rash, and discoloration, Neuro: Negative for headache, weakness, numbness, tingling, and seizure. 12:25 Constitutional: Positive for malaise. 12:25 Cardiovascular: Positive for chest pain, edema, palpitations, paroxysmal nocturnal dyspnea. 12:25 Respiratory: Positive for shortness of breath, at rest. Exam: 12:23 Constitutional: This is a well developed, well nourished patient who is awake, alert, snw and in no acute distress. Head/Face: Normocephalic, atraumatic. Eyes: Pupils equal round and reactive to light, extra-ocular motions intact. Lids and lashes normal. Conjunctiva and sclera are non-icteric and not injected. Cornea within normal limits. Periorbital areas with no swelling, redness, or edema. ENT: Nares patent. No nasal discharge, no septal abnormalities noted. Tympanic membranes are normal and external auditory canals are clear. Oropharynx with no redness, swelling, or masses, exudates, or evidence of obstruction, uvula midline. Mucous membranes moist. Neck: Trachea midline, no thyromegaly or masses palpated, and no cervical lymphadenopathy. Supple, full range of motion without nuchal rigidity, or vertebral point tenderness. No Meningismus. Chest/axilla: Normal chest wall appearance and motion. Nontender with no deformity. No lesions are appreciated. 12:23 Back: No spinal tenderness. No costovertebral tenderness. Full range of motion. MS/ Extremity: Pulses equal, no cyanosis. Neurovascular intact. Full, normal range of motion. Neuro: Awake and alert, GCS 15, oriented to person, place, time, and situation. Cranial nerves II-XII grossly intact. Motor strength 5/5 in all extremities. Sensory grossly intact. Cerebellar exam normal. Normal gait. Psych: Awake, alert, with orientation to person, place and time. Behavior, mood, and affect are within normal limits. 12:23 Cardiovascular: Rate: bradycardic, Rhythm: regular, Pulses: no pulse deficits are appreciated, Edema: 4+ edema to level of left midcalf, left ankle, left foot, right midcalf, right ankle and right foot, abdominal and bilateral hand edema as well, new for pt. 12:23 ECG was reviewed by the Attending Physician. 12:23 Respiratory: mild respiratory distress is noted, Respirations: shallow respirations, tachypnea, that is moderate, Breath sounds: are clear throughout. 12:23 Abdomen/GI: Inspection: distension, Bowel sounds: normal, Palpation: abdomen is soft and non-tender. 12:23 Skin: Appearance: edematous, lower bilateral extremities with some erythema. Vital Signs: 12:17 BP 158 / 97; Pulse 64; Resp 24; Temp 99.1(O); Pulse Ox 99% on R/A; Weight 97.98 kg (M); em Height 5 ft. 7 in. (170.18 cm); Pain 2/10; 13:15 BP 149 / 85; Pulse 41; Resp 18; Pulse Ox 99% on R/A; em 14:00 BP 169 / 96; Pulse 67; Resp 18; Pulse Ox 99% on R/A; em 15:02 BP 163 / 77; Pulse 58; Resp 18; Pulse Ox 97% on R/A; Pain 0/10; em 12:17 Body Mass Index 33.83 (97.98 kg, 170.18 cm) em MDM: 11:49 Patient medically screened. snw 13:27 Data reviewed: vital signs, nurses notes. Data interpreted: Pulse oximetry: on room air snw is 99 %. Interpretation: acceptable. Counseling: I had a detailed discussion with the patient and/or guardian regarding: the historical points, exam findings, and any diagnostic results supporting the discharge/admit diagnosis, the presence of at least one elevated blood pressure reading (>120/80) during this emergency department visit, lab results, radiology results, the need for further work-up and treatment in the hospital. Physician consultation: Annmarie Mclean MD was called at 13:28, was contacted at 13:28, regarding admission, to the ICU. 02/09 11:47 Order name: Basic Metabolic Panel; Complete Time: 12:55 snw 02/09 11:47 Order name: CBC with Diff; Complete Time: 12:22 snw 02/09 11:47 Order name: LFT's; Complete Time: 12:55 snw 02/09 11:47 Order name: Magnesium; Complete Time: 12:55 snw 02/09 11:47 Order name: NT PRO-BNP; Complete Time: 12:55 snw 02/09 11:47 Order name: PT-INR; Complete Time: 12:22 snw 02/09 11:47 Order name: Troponin (emerg Dept Use Only); Complete Time: 12:55 snw 02/09 11:47 Order name: XRAY Chest (1 view); Complete Time: 12:38 snw 02/09 11:47 Order name: EKG; Complete Time: 11:48 snw 02/09 11:47 Order name: Cardiac monitoring; Complete Time: 12:19 snw 02/09 11:47 Order name: EKG - Nurse/Tech; Complete Time: 12:19 snw 02/09 11:47 Order name: IV Saline Lock; Complete Time: 12:20 snw 02/09 11:47 Order name: Labs collected and sent; Complete Time: 12:20 snw 02/09 11:47 Order name: O2 Per Protocol; Complete Time: 12:20 snw 02/09 11:47 Order name: O2 Sat Monitoring; Complete Time: 12:19 snw 02/09 12:14 Order name: Gonzales; Complete Time: 12:54 snw 02/09 12:14 Order name: Trung. Order: weight to chart; Complete Time: 12:19 snw Administered Medications: 12:35 Drug: Lasix 40 mg Route: IVP; Site: right antecubital; iw 15:02 Follow up: Response: No adverse reaction em 13:14 Drug: Aspirin 325 mg Route: PO; em 15:01 Follow up: Response: No adverse reaction em 13:14 Drug: Potassium Effervescent Tablet 50 mEq Route: PO; em 14:30 Follow up: Response: No adverse reaction em 13:14 Drug: Potassium Chloride 20 mEq Route: IV; Rate: calculated rate; Site: right em antecubital; 15:02 Follow up: Response: No adverse reaction; IV Status: Completed infusion; IV Intake: em 100ml 13:14 Drug: Magnesium Sulfate 1 grams Route: IVPB; Infused Over: 1 hrs; Site: right em antecubital; 14:30 Follow up: Response: No adverse reaction; IV Status: Completed infusion; IV Intake: em 100ml 15:00 Drug: Potassium Chloride 20 mEq Route: IV; Rate: calculated rate; Site: right em antecubital; 16:00 Follow up: IV Status: Infusion continued upon admission; IV Intake: 20ml em Disposition: 02/10 09:14 Co-signature as Attending Physician, Sohail Adams MD I agree with the assessment and kimber plan of care. Disposition: 02/09/19 13:31 Hospitalization ordered by Annmarie Mclean for Inpatient Admission. Preliminary diagnosis are Unspecified diastolic (congestive) heart failure, Hypomagnesemia, Hypokalemia, Bradycardia, unspecified. - Bed requested for Intensive Care Unit. - Status is Inpatient Admission. em - Condition is Stable. - Problem is an acute exacerbation. - Symptoms have worsened. UTI on Admission? No Critical care time excluding procedures: 02/09 13:31 Critical care time: Bedside Care: 5 minutes, Consultation: 10 minutes, Family snw Intervention: 15 minutes. Total time: 30 minutes Signatures: Dispatcher [employer] Cammy Ayoub RN RN dw Anderson, Corey, MD MD cha Therrien, Shelly, SPECIAL SERVICE REPRESENTATIVE-C SPECIAL SERVICE REPRESENTATIVE-Csnw Willie Augustine, BAG BAILER BAG BAILER em Evelin Kirby RN RN iw Corrections: (The following items were deleted from the chart) 14:33 13:31 Hospitalization Ordered by Annmarie Mclean MD for Inpatient Admission. Preliminary dw diagnosis is Unspecified diastolic (congestive) heart failure; Hypomagnesemia; Hypokalemia; Bradycardia, unspecified. Bed requested for Intensive Care Unit. Status is Inpatient Admission. Condition is Stable. Problem is an acute exacerbation. Symptoms have worsened. UTI on Admission? No. snw 16:01 14:33 02/09/2019 13:31 Hospitalization Ordered by Annmarie Mclean MD for Inpatient em Admission. Preliminary diagnosis is Unspecified diastolic (congestive) heart failure; Hypomagnesemia; Hypokalemia; Bradycardia, unspecified. Bed requested for Intensive Care Unit. Status is Inpatient Admission. Condition is Stable. Problem is an acute exacerbation. Symptoms have worsened. UTI on Admission? No. dw
--- NOTE | 2019-02-09 13:31 | ER ---
Nurse's Notes [facility] Name: Son Parker Age: 63 yrs Sex: Male : 1955 Arrival Date: 02/09/2019 Time: 11:39 Bed 17 Private MD: Diagnosis: Unspecified diastolic (congestive) heart failure;Hypomagnesemia;Hypokalemia;Bradycardia, unspecified Presentation: 02/09 11:59 Presenting complaint: Patient states: SOB that started yesterday night with chest em pressure, also reports being dizzy, denies nausea, also was treated for hypokalemia and discharged 2 days ago, was asymptomatic 2 days ago. Transition of care: patient was not received from another setting of care. Onset of symptoms was February 08, 2019. Risk Assessment: Do you want to hurt yourself or someone else? Patient reports no desire to harm self or others. Initial Sepsis Screen: Does the patient meet any 2 criteria? No. Patient's initial sepsis screen is negative. Does the patient have a suspected source of infection? No. Patient's initial sepsis screen is negative. Care prior to arrival: None. 11:59 Method Of Arrival: Wheelchair em 12:00 Acuity: HEATHER 3 iw Historical: - Allergies: 12:17 No Known Allergies; em - Home Meds: 12:17 potassium chloride 20 mEq Oral pack 1 packet 3 times per day [Active]; ranitidine HCl em 150 mg Oral tab 1 tab 2 times per day [Active]; amlodipine 10 mg tab 1 tab once daily [Active]; metformin 500 mg Oral tab 1 tab 2 times per day [Active]; Bactrim DS 800-160 mg Oral tab [Active]; baclofen 10 mg Oral tab 1 tab 3 times per day [Active]; clonidine HCl 0.2 mg Oral tab 1 tab 3 times per day [Active]; carvedilol 25 mg oral tab 1 tab 2 times per day [Active]; Flomax 0.4 mg Oral cp24 1 cap once daily [Active]; aspirin 81 mg Oral chew 1 tab once daily [Active]; clopidogrel 75 mg oral tab 1 tab once daily [Active]; glipizide 10 mg Oral tab 1 tab once daily [Active]; telmisartan 80 mg oral tab 1 tab once daily [Active]; Lasix 40 mg Oral tab 1 tab once daily [Active]; - PMHx: 12:17 Diabetes - NIDDM; Hypertension; em - PSHx: 12:17 Knee surgery; em - Immunization history:: Adult Immunizations up to date. - Social history:: Smoking status: Patient/guardian denies using tobacco. - Ebola Screening: : Patient negative for fever greater than or equal to 101.5 degrees Fahrenheit, and additional compatible Ebola Virus Disease symptoms Patient denies exposure to infectious person Patient denies travel to an Ebola-affected area in the 21 days before illness onset No symptoms or risks identified at this time. Screenin:41 Abuse screen: Denies threats or abuse. Nutritional screening: No deficits noted. em Tuberculosis screening: No symptoms or risk factors identified. Fall Risk Ambulatory Aid- Crutches/Cane/Walker (15 pts). Mental Status- Overestimates/Forgets Limitations (15 pts.). Total Snider Fall Scale indicates Low Risk Score (25-44 pts). Side Rails Up X 2 Frequent Obs/Assesments occuring Family Present and informed to notify staff if they need to leave bedside. Assessment: 12:15 General: Appears in no apparent distress. comfortable, Behavior is calm, cooperative, em Denies fever. Pain: Complains of pain in anterior aspect of left upper chest Pain does not radiate. Pain currently is 3 out of 10 on a pain scale. Quality of pain is described as pressure, Pain began 1 day ago. Neuro: Level of Consciousness is awake, alert, obeys commands, Oriented to person, place, time, situation, Moves all extremities. Gait is steady, Speech is normal, Pupils are PERRLA, Reports dizziness, Denies weakness. Cardiovascular: Reports shortness of breath, Denies Capillary refill < 3 seconds Patient's skin is warm and dry. Edema is 4+ to left midcalf, left ankle, left foot, right midcalf, right ankle and right foot Rhythm is irregular. Respiratory: Airway is patent Respiratory effort is even, unlabored, Respiratory pattern is regular, symmetrical, Breath sounds are clear bilaterally. Onset: The symptoms/episode began/occurred yesterday, the patient has moderate shortness of breath. GI: : No signs and/or symptoms were reported regarding the genitourinary system. Derm: Skin is intact, is healthy with good turgor, Skin is pink, warm \T\ dry. Musculoskeletal: Capillary refill < 3 seconds, Range of motion: intact in all extremities, Swelling present in right leg and left leg. 12:30 Reassessment: I agree with the above assessment, YARELIS Sherman. mg2 13:00 Reassessment: Patient appears in no apparent distress at this time. Patient and/or em family updated on plan of care and expected duration. Pain level reassessed. Patient is alert, oriented x 3, equal unlabored respirations, skin warm/dry/pink. family at bedside Patient states feeling better. 13:45 Reassessment: Dr. Mclean at bedside. em 14:45 Reassessment: Patient appears in no apparent distress at this time. Patient and/or em family updated on plan of care and expected duration. Pain level reassessed. Patient is alert, oriented x 3, equal unlabored respirations, skin warm/dry/pink. Patient denies pain at this time. Vital Signs: 12:17 BP 158 / 97; Pulse 64; Resp 24; Temp 99.1(O); Pulse Ox 99% on R/A; Weight 97.98 kg (M); em Height 5 ft. 7 in. (170.18 cm); Pain 2/10; 13:15 BP 149 / 85; Pulse 41; Resp 18; Pulse Ox 99% on R/A; em 14:00 BP 169 / 96; Pulse 67; Resp 18; Pulse Ox 99% on R/A; em 15:02 BP 163 / 77; Pulse 58; Resp 18; Pulse Ox 97% on R/A; Pain 0/10; em 12:17 Body Mass Index 33.83 (97.98 kg, 170.18 cm) em ED Course: 11:39 Patient arrived in ED. as 11:46 Kary Shaffer FNP-C [facility]. snw 11:47 Sohail Adams MD is Attending Physician. snw 11:51 Willie Augustine LVN is Primary Nurse. em 12:04 EKG done, by ED staff, reviewed by Kary RATLIFF. 5 12:05 Patient has correct armband on for positive identification. Bed in low position. Call mh5 light in reach. Side rails up X 1. Adult w/ patient. Warm blanket given. conveyor monitor on. Pulse ox on. NIBP on. 12:15 Patient maintains SpO2 saturation greater than 95% on room air. em 12:17 Arm band placed on. em 12:24 XRAY Chest (1 view) In Process Unspecified. EDMS 12:30 Initial lab(s) drawn, by me, sent to lab. Inserted saline lock: 20 gauge in right em antecubital area, using aseptic technique. Blood collected. 12:43 Triage completed. iw 12:51 Notified Nurse Practitioner and/or Physician Diesel Plant Operator of a critical lab result(s), la1 K-2.2. 13:29 Joey Mclean MD is Hospitalizing Provider. snw 13:29 Hospitalizing Provider role handed off by Joey Mclean MD snw 13:29 Annmarie Mclean MD is Hospitalizing Provider. snw 15:59 No provider procedures requiring assistance completed. Patient admitted, IV remains in em place. Administered Medications: 12:35 Drug: Lasix 40 mg Route: IVP; Site: right antecubital; iw 15:02 Follow up: Response: No adverse reaction em 13:14 Drug: Aspirin 325 mg Route: PO; em 15:01 Follow up: Response: No adverse reaction em 13:14 Drug: Potassium Effervescent Tablet 50 mEq Route: PO; em 14:30 Follow up: Response: No adverse reaction em 13:14 Drug: Potassium Chloride 20 mEq Route: IV; Rate: calculated rate; Site: right em antecubital; 15:02 Follow up: Response: No adverse reaction; IV Status: Completed infusion; IV Intake: em 100ml 13:14 Drug: Magnesium Sulfate 1 grams Route: IVPB; Infused Over: 1 hrs; Site: right em antecubital; 14:30 Follow up: Response: No adverse reaction; IV Status: Completed infusion; IV Intake: em 100ml 15:00 Drug: Potassium Chloride 20 mEq Route: IV; Rate: calculated rate; Site: right em antecubital; 16:00 Follow up: IV Status: Infusion continued upon admission; IV Intake: 20ml em Intake: 14:30 IV: 100ml; Total: 100ml. em 15:02 IV: 100ml; Total: 200ml. em 16:00 IV: 20ml; Total: 220ml. em Outcome: 13:31 Decision to Hospitalize by Provider. snw 15:59 Admitted to ICU accompanied by nurse, accompanied by tech, family with patient, via em stretcher, room 2, on monitor, with chart, Report called to YARELIS Chacko 16:00 Condition: stable em 16:00 Instructed on the need for admit, Demonstrated understanding of instructions. 16:01 Patient left the ED. em Signatures: Dispatcher [employer] EDMS Kary Shaffer, FOUNTAIN JERK-C FOUNTAIN JERK-Csnw Willie Augustine, CCNP CCNP em Marlene Wooten Irene, RN RN Terrence Workman RN RN wi1 Kriss Wooten [facility] Constantine Valle RN RN mg2 Corrections: (The following items were deleted from the chart) 12:22 12:17 BP 158 / 97; Pulse 64bpm; Resp 24bpm; Pulse Ox 99% RA; 97.98 kg Measured; Height em 5 ft. 7 in.; BMI: 33.8; Pain 2/10; em
[2019-02-09] MEDS ORDERED: GLUCAGON 1 MG/VIAL IM PRN (15:42)
[2019-02-09] MEDS ORDERED: D50W 25 GM/50 ML SYRINGE IV PRN (15:42)
[2019-02-09] MEDS ORDERED: NA CHLORIDE 0.9% 250 ML ONE (16:13)
[2019-02-09 16:16] LABS: Thyroid Stimulating Hormone 3.76 uIU/mL (0.360-3.740)
--- NOTE | 2019-02-09 16:22 | P.HP ---
Patient History Date of Service: 02/09/19 History of Present Illness: This is a 63-year-old male with past medical history of hypertension, type 2 diabetes mellitus admitted for generalized edema and chest pressure. Per patient and granddaughter at bedside, patient was recently seen in the ER for a fall, was found to be hypokalemic. He was given potassium and discharged home from the ER. He comes back today due to complaints of chest pain/ pressure that started last night at 4:00 a.m.. This will come up from sleep. He states that it was a pressure-like feeling was associated with dizziness and shortness of breath. He has been having this generalized edema as well for the past few months that has been progressively worsening. He does not have a diagnosis of congestive heart failure, though does take Lasix at home. When he woke up with this chest tightness, family called EMS and patient was brought to the emergency room. In the ER, initial vital signs are 158/87, heart rate is 64, respirations of 24 , afebrile at 99% on room air. His BMI is 33. He his heart rate varied anywhere from 30s to 60s. His labs were remarkable for sodium of 148, potassium of 2.2, magnesium of 1.5, calcium of 7.4, troponin of 0.31 and a BNP of 3501. He was given 40 mg IV Lasix, his potassium was replaced along with his magnesium. His chest x-ray was concerning for moderate cardiomegaly without any acute abnormalities. At the time of my exam, he was alert oriented x3, in no acute distress. He was hemodynamically stable, satting well on room air but his heart rate was still irregular, ranging anywhere from 37 to 50s. He was admitted to the ICU for further management of his cardiac arrhythmia, volume overload and chest pain Allergies No Known Allergies Allergy (Unverified 02/09/19 14:31) Home medications list reviewed: Yes - Past Medical/Surgical History Diabetic: Yes -: Hypertension -: Vfk-nqywctz-oyzhkyuch diabetes mellitus, type 2 -: GERD Review of Systems 10-point ROS is otherwise unremarkable Physical Examination - Physical Exam General: Alert, In no apparent distress, Oriented x3, Obese HEENT: Atraumatic, PERRLA, Mucous membr. moist/pink, EOMI, Sclerae nonicteric Neck: Supple, 2+ carotid pulse no bruit, No LAD, Without JVD or thyroid abnormality Respiratory: Diminished, Crackles/rales Cardiovascular: Edema (2+ pitting edema bilateral lower extremity, abdomen; no scrotal edema noted), Irregular heart rate/rhythm (Bradycardic) Gastrointestinal: Normal bowel sounds, No tenderness Musculoskeletal: No tenderness Integumentary: Other (Chronic skin changes bilateral lower extremity) Neurological: Normal gait, Normal speech, Normal strength at 5/5 x4 extr, Normal tone, Normal affect - Studies Laboratory Data (last 24 hrs) 02/09/19 12:06: PT 13.3 H, INR 1.13 02/09/19 12:06: WBC 5.9, Hgb 10.4 L, Hct 30.9 L, Plt Count 209 02/09/19 12:06: Sodium 148 H, Potassium 2.2 L*, BUN 15, Creatinine 0.81, Glucose 205 H, Magnesium 1.5 L, Total Bilirubin 0.3, AST 13 L, ALT 17, Alkaline Phosphatase 83 Assessment and Plan - Problems (Diagnosis) (1) Acute respiratory distress Current Visit: Yes Status: Acute Plan: Likely secondary to volume overload Continue IV diuresis Strict input and output measurements Provide oxygen as needed per protocol Breathing treatments as needed (2) Generalized edema Current Visit: Yes Status: Acute (3) Volume overload Current Visit: Yes Status: Acute Plan: Patient with volume overload on exam, even though BNP not really remarkable. Chest x-ray with moderate cardiomegaly, clinically, patient with shortness of breath especially on exertion. Patient does not have a history of congestive heart failure, though all I suspect he may have some component of CHF. Echo ordered, pending. Continue IV diuresis with Lasix 40 b.i.d. Qualifiers: Hypervolemia type: unspecified Qualified Code(s): E87.70 - Fluid overload, unspecified (4) Arrhythmia Current Visit: Yes Status: Acute Plan: Patient with an arrhythmia, seems to have an irregular rhythm, with bradycardia. This could be secondary to electrolyte imbalance versus CHF versus volume overload Will continue to monitor in the ICU, especially due to the hypokalemia and arrhythmia. Qualifiers: Arrhythmia type: unspecified cardiac arrhythmia Qualified Code(s): I49.9 - Cardiac arrhythmia, unspecified (5) Hypernatremia Current Visit: Yes Status: Acute Plan: Likely secondary to volume overload, continued diuresis and monitor (6) Hypokalemia Current Visit: Yes Status: Acute Plan: Likely multifactorial: Patient on ARB, diuretic, hypomagnesemia Will correct, replete and monitor. (7) Hypomagnesemia Current Visit: Yes Status: Acute Plan: Replete and monitor per protocol (8) Elevated troponin Current Visit: Yes Status: Acute Plan: Likely secondary to volume overload versus heart failure versus dehydration versus ACS Trend troponins Echo ordered, pending (9) Diabetes mellitus Current Visit: No Status: Acute Plan: Accu-Cheks and mild sliding scale insulin. Will monitor and adjust as needed Qualifiers: Diabetes mellitus type: type 2 Diabetes mellitus home care provider insulin use: without home care provider use Diabetes mellitus complication status: with hyperglycemia Qualified Code(s): E11.65 - Type 2 diabetes mellitus with hyperglycemia (10) Hypertension Current Visit: Yes Status: Chronic Plan: Patient currently on amlodipine 10 mg, clonidine 0.2 mg 3 times a day, carvedilol 25 mg b.i.d., Telmisartan 80 mg daily, Lasix 40 mg daily. We will hold amlodipine due to edema. Hold Telmisartan due to hypokalemia. Will continue clonidine and carvedilol at this time. We will monitor and adjust as needed Qualifiers: Hypertension type: essential hypertension Qualified Code(s): I10 - Essential (primary) hypertension (11) Obesity (BMI 30.0-34.9) Current Visit: No Status: Chronic (12) Chest pain Current Visit: Yes Status: Acute Plan: Rule out ACS Initial troponin elevated to 0.31 (this could be secondary to ACS versus volume overload versus CHF versus dehydration) Echo ordered, pending May consult cardiology if chest pain returns, or troponin with significant elevation on recheck. Qualifiers: Chest pain type: unspecified Qualified Code(s): R07.9 - Chest pain, unspecified - Plan DVT prophylaxis: Lovenox GI prophylaxis: Protonic Diet: Heart healthy/renal with fluid restriction Disposition: Admit to the ICU due to hypokalemia and arrhythmia. Pending workup - Advance Directives Does patient have a Living Will: No Does patient have a Durable POA for Healthcare: No Critical Care: Yes Time Spent Managing Pts Care (In Minutes): 55
[2019-02-09] MEDS ORDERED: PNEUMOCOCCAL VACCINE 0.5 ML IMVAC ONE (17:00)
[2019-02-09] MEDS ORDERED: ENOXAPARIN 40 MG/0.4 ML SQ SCH (17:00)
[2019-02-09] MEDS: FUROSEMIDE 40 MG/4 ML VIAL IV SCH (17:00)
[2019-02-09] MEDS: INSULIN -REGULAR HUMAN 50 UNIT/0.5 ML ML SQ SCH ×2 (17:47→20:30)
[2019-02-09 20:06] LABS: Potassium 2.2 mmol/L (3.5-5.1); Troponin I 0.32 ng/mL (0.0-0.045)
[2019-02-09] MEDS: cloNIDine HCl 0.1 MG TAB PO SCH (20:28)
[2019-02-09] MEDS: RANITIDINE 150 MG TABLET PO SCH (20:29)
[2019-02-09] MEDS: CARVEDILOL 25 MG TAB PO SCH (20:29)
[2019-02-09] MEDS ORDERED: POTASSIUM 25 MEQ EFFERV TAB PO ONE ×2 (20:40→21:40)
[2019-02-10] MEDS ORDERED: HYDROCORTISONE SUC 100 MG INJ IV ONE (00:21)
[2019-02-10] MEDS ORDERED: POTASSIUM 25 MEQ EFFERV TAB PO ONE ×4 (00:30→13:50)
[2019-02-10] MEDS: HYDRALAZINE HCL 20 MG/ML VIAL IV PRN (02:19)
[2019-02-10 05:25] LABS: Absolute Lymphocytes (CBC) 0.9 K/uL (0.7-4.9); Absolute Monocytes 0.4 K/uL (0.1-1.3); Absolute Neutrophil 4.3 K/uL (1.8-8.0); Basophils % 0.3 % (0-1.3); Eosinophils % 0.1 % (0-4.4); Hematocrit 30.2 % (39.6-49.0); Lymphocytes % 16.4 % (15.3-44.8); Monocytes % 7.2 % (3.3-12.3); RBC Red Blood Cell Count 3.28 M/uL (4.33-5.43)
[2019-02-10 06:04] LABS: ALT/SGPT 16 U/L (12-78); AST/SGOT 14 U/L (15-37); Alkaline Phosphatase 83 U/L (45-117); BUN Blood Urea Nitrogen 11 mg/dL (7-18); Bilirubin Total 0.3 mg/dL (0.2-1.0); Glucose Level 172 mg/dL (74-106); HDL Cholesterol 30 mg/dL (40-60); LDL Cholesterol, Calculated 32 (<130); Magnesium 1.6 mg/dL (1.8-2.4); Phosphorus 2.4 mg/dL (2.5-4.9); Potassium 3.3 mmol/L (3.5-5.1); Protein, Total 5.9 g/dL (6.4-8.2); Sodium Level 152 mmol/L (136-145)
[2019-02-10 06:06] LABS: Bicarbonate 42 mmol/L (21-32)
[2019-02-10] MEDS: INSULIN -REGULAR HUMAN 50 UNIT/0.5 ML ML SQ SCH ×4 (07:30→21:00)
[2019-02-10] MEDS ORDERED: MAGNESIUM SULFATE 1 gm IVPB 1 GM/100 ML BAG IV ONE ×2 (07:30→21:38)
[2019-02-10] MEDS: RANITIDINE 150 MG TABLET PO SCH ×2 (08:18→20:20)
[2019-02-10] MEDS: cloNIDine HCl 0.1 MG TAB PO SCH ×3 (08:18→20:19)
[2019-02-10] MEDS: FUROSEMIDE 40 MG/4 ML VIAL IV SCH (08:18)
[2019-02-10] MEDS: TAMSULOSIN 0.4 MG SR CAP PO SCH (08:18)
[2019-02-10] MEDS ORDERED: ASPIRIN 81 MG CHEWABLE TABLET PO SCH (09:00)
--- NOTE | 2019-02-10 09:20 | EKG ---
Test Date: 2019-02-09 Test Time: 11:52:51 Foreign Broadcast Specialist: LUCILLE MEASUREMENT RESULTS: Intervals: Rate: 66 MN: 142 QRSD: 80 QT: 434 QTc: 454 [place]: P: 1 MN: 142 QRS: 2 T: -23 INTERPRETIVE STATEMENTS: Sinus rhythm with marked sinus arrhythmia Left ventricular hypertrophy with repolarization abnormality Abnormal ECG Compared to ECG 02/07/2019 12:44:29 Early repolarization now present Atrial premature complex(es) no longer present Ventricular premature complex(es) no longer present ST (T wave) deviation no longer present Electronically Signed On 02-10-19 09:19:34 CDT by Nick Collins
[2019-02-10] MEDS: CARVEDILOL 25 MG TAB PO SCH ×2 (10:08→21:04)
[2019-02-10] MEDS: CLOPIDOGREL 75 MG TABLET PO SCH (11:14)
--- NOTE | 2019-02-10 11:43 | RAD REPORT ---
EXAM DESCRIPTION: Ron Single View02/10/2019 11:26 am CLINICAL HISTORY: Shortness of breath COMPARISON: February 09, 2019 FINDINGS: Mild interstitial lung opacities. The heart is mildly to moderately enlarged IMPRESSION: Mild CHF
--- NOTE | 2019-02-10 12:56 | CON ---
History Of Present Illness: Mr. Parker came to the hospital because he felt his heart beating i rregularly. He had a pinching chest pain close to his left nipple. Not any chest pain that would no rmally one think of CAD and since being here, he has rhythm strips that show frequent blocked PACs an d a lot of metabolic abnormalities, namely high sodium and very low potassium level. He has underlyi ng diabetes, hypertension, remote history of CAD with a stent. He takes glipizide, telmisartan, Bact rim, Plavix, Lioresal, furosemide, Flomax, carvedilol, amlodipine, clonidine, ranitidine, metformin, potassium chloride, and aspirin. He has not been told in the past that he has congestive heart failu re and internal proBNP level is elevated. An echocardiogram has not been done at this point. He use s no tobacco. Physical Examination: General: A 5 feet 7 inches, 211 pounds, obese, alert, oriented, pleasant, not in distress. Lungs: Reveal basilar crackles. Heart: Regular rate and rhythm. No significant murmur. Abdomen: Soft. Extremities: 2 to 3+ pitting edema. Chronic venous stasis changes on his right and left shins. Dis kamaljit pulses are normal. Troponin level is 0.3. Creatinine 0.6, BUN 11. I think the patient needs more diuresis. He needs s ome free water along with his diuresis to get his sodium levels closer to normal. He needs better co ntrol of his blood pressure. I think rather than jumping right into a cardiac cath, I would prefer t o do a pharmacologic nuclear stress test and echo to see what we learn about his overall heart functi on, I am not sure I am ready to call this an acute myocardial infarction. All of his troponins are at same over 24-hour. There is not a rise and fall that would be indicative of an acute coronary syndrome. SH/MODL Voice ID: [id number] Report ID: [id number]
--- NOTE | 2019-02-10 13:50 | ECHO ---
HEIGHT: 5 ft 7 in WEIGHT: 211 lb 1.6 oz DATE OF STUDY: 02/10/[address]: Annmarie Mclean MD 2-DIMENSIONAL: YES M.MODE: YES DOPPLER: YES COLOR FLOW: YES TDS: NO PORTABLE: NO DEFINITY: NO BUBBLE STUDY: NO DIAGNOSIS: VOLULME OVERLOAD CARDIAC HISTORY: CATHERIZATION: YES SURGERY: STENT PROSTHETIC VALVE: NO PACEMAKER: NO MEASUREMENTS (cm) DIASTOLIC (NORMALS) SYSTOLIC (NORMALS) IVSd 1.1 (0.6-1.2) LA Diam 5.0 (1.9-4.0) LVEF 53% LVIDd 4.8 (3.5-5.7) LVIDs 3.5 (2.0-3.5) %FS 27% LVPWd 1.2 (0.6-1.2) Ao Diam 3.6 (2.0-3.7) 2 DIMENSIONAL ASSESSMENT: RIGHT ATRIUM: NORMAL LEFT ATRIUM: DILATED RIGHT VENTRICLE: NORMAL LEFT VENTRICLE: NORMAL TRICUSPID VALVE: NORMAL MITRAL VALVE: NORMAL PULMONIC VALVE: NORMAL AORTIC VALVE: NORMAL PERICARDIAL EFFUSION: NONE AORTIC ROOT: NORMAL LEFT VENTRICULAR WALL MOTION: NORMAL. DOPPLER/COLOR FLOW: MILD MITRAL AND TRICUSPID REGURGITATION. NORMAL RIGHT VENTRICULAR SYSTOLIC PRESSURE. COMMENTS: NORMAL LEFT VENTRICULAR EJECTION FRACTION. DILATED LEFT ATRIUM. MILD MITRAL AND TRICUSPID REGURGITATION. TECHNOLOGIST: DAVID LOPEZ
[2019-02-10] MEDS ORDERED: POTASSIUM CL SA 10 MEQ TAB PO ONE ×2 (13:51→21:38)
[2019-02-10] MEDS: KCL 20 MEQ/100 mL IVPB 20 MEQ/100 ML BAG IV SCH ×2 (14:02→16:23)
--- NOTE | 2019-02-10 16:54 | P.PN ---
Subjective Date of Service: 02/10/19 Subjective: Improving Patient seen and examined at bedside. Son at bedside. Chart reviewed and case discussed with nursing staff. Patient admitted for generalized edema and hypokalemia along with shortness of breath. Patient reports improved shortness of breath this morning. Edema also improved Review of Systems 10-point ROS is otherwise unremarkable Physical Examination - Vital Signs Temperature: 98.6 F Blood Pressure: 147/97 Pulse: 58 Respirations: 15 Pulse Ox (%): 99 - Physical Exam General: Alert, In no apparent distress, Oriented x3 HEENT: Atraumatic Cardiovascular: Edema (2+ pitting edema, bilateral not sure) Gastrointestinal: Normal bowel sounds, No tenderness Integumentary: Other (Chronic bilateral lower extremity skin changes) Assessment And Plan - Current Problems (Diagnosis) (1) Acute respiratory distress Current Visit: Yes Status: Acute Plan: Likely secondary to volume overload - improved Echocardiogram with diastolic dysfunction with preserved ejection fraction Continue IV diuresis Strict input and output measurements Provide oxygen as needed per protocol Breathing treatments as needed (2) Generalized edema Current Visit: Yes Status: Acute (3) Volume overload Current Visit: Yes Status: Acute Plan: Patient with volume overload on exam, even though BNP not really remarkable. Chest x-ray with moderate cardiomegaly, clinically, patient with shortness of breath especially on exertion. Patient does not have a history of congestive heart failure, though all I suspect he may have some component of CHF. Echo with diastolic dysfunction with preserved ejection fraction. Continue IV diuresis with IV Lasix 40 b.i.d. Qualifiers: Hypervolemia type: unspecified Qualified Code(s): E87.70 - Fluid overload, unspecified (4) Arrhythmia Current Visit: Yes Status: Acute Plan: Patient with an arrhythmia, seems to have an irregular rhythm, with bradycardia. This could be secondary to electrolyte imbalance versus CHF versus volume overload Will continue to monitor in the ICU, especially due to the hypokalemia and arrhythmia. He is pending a stress test tomorrow Qualifiers: Arrhythmia type: unspecified cardiac arrhythmia Qualified Code(s): I49.9 - Cardiac arrhythmia, unspecified (5) Hypernatremia Current Visit: Yes Status: Acute Plan: Freewater to help with hypernatremia (6) Hypokalemia Current Visit: Yes Status: Acute Plan: Likely multifactorial: Patient on ARB, diuretic, hypomagnesemia Will correct, replete and monitor. Continue to monitor (7) Hypomagnesemia Current Visit: Yes Status: Acute Plan: Replete and monitor per protocol (8) Elevated troponin Current Visit: Yes Status: Acute Plan: Likely secondary to volume overload versus heart failure versus dehydration versus ACS Troponins remained elevated, though stable. Not trending upwards He is pending a cardiac stress test tomorrow (9) Diabetes mellitus Current Visit: No Status: Acute Plan: Accu-Cheks and mild sliding scale insulin. 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 We will hold amlodipine due to edema. Hold Telmisartan due to hypokalemia. Will continue clonidine and carvedilol at this time. We will monitor and adjust as needed Qualifiers: Hypertension type: essential hypertension Qualified Code(s): I10 - Essential (primary) hypertension (11) Obesity (BMI 30.0-34.9) Current Visit: No Status: Chronic (12) Chest pain Current Visit: Yes Status: Acute Plan: Rule out ACS- pending stress test Initial troponin elevated to 0.31 (this could be secondary to ACS versus volume overload versus CHF versus dehydration) Cardiology consulted, recommendations appreciated. Qualifiers: Chest pain type: unspecified Qualified Code(s): R07.9 - Chest pain, unspecified - Plan DVT prophylaxis: Lovenox GI prophylaxis: Protonic Diet: Heart healthy/renal with fluid restriction Disposition: Continue to monitor in the ICU. Pending cardiac stress test tomorrow. Continue IV diuresis. Monitor labs
[2019-02-10] MEDS ORDERED: ENOXAPARIN 40 MG/0.4 ML SQ SCH (17:00)
--- NOTE | 2019-02-10 19:03 | RAD REPORT ---
EXAM DESCRIPTION: US - Extrem Venous W Compress Juan - 02/10/2019 6:42 pm CLINICAL HISTORY: PVD, extremity swelling Bilateral leg edema and swelling. COMPARISON: <Comparisons> TECHNIQUE: Real-time sonographic interrogation of the left and right lower extremity deep venous sys tems was performed. FINDINGS: Normal compressibility, flow augmentation, phasic flow and spontaneous flow is identified in both the left and right lower extremity deep venous systems. IMPRESSION: No sonographic evidence of left or right lower extremity deep venous thrombosis.
--- NOTE | 2019-02-10 19:18 | RAD REPORT ---
EXAM DESCRIPTION: US - Lower Extremity Arterial Bilat - 02/10/2019 6:42 pm CLINICAL HISTORY: PVD/ extremity swelling Leg pain COMPARISON: <Comparisons> TECHNIQUE: Bilateral lower extremity arterial Doppler examination was performed with waveform tracin g and ankle brachial pressure measurements. FINDINGS: Symmetric brachial pressure measurements are noted. Triphasic waveforms are seen throughout both lower extremity arterial systems to the level of the tiffany salis pedis arteries. Right ankle brachial index measures 1.1, normal. Left ankle brachial index measures 1.2, normal. IMPRESSION: No evidence of significant peripheral vascular disease.
[2019-02-10 21:19] LABS: Magnesium 1.8 mg/dL (1.8-2.4); Phosphorus 2.2 mg/dL (2.5-4.9); Potassium 3.1 mmol/L (3.5-5.1)
[2019-02-10] MEDS ORDERED: POTASSIUM PHOS IN 0.9 % NACL 15 MMOL/250 ML BAG IV ONE (21:41)
[2019-02-11 05:29] LABS: BUN Blood Urea Nitrogen 16 mg/dL (7-18); Bicarbonate 39 mmol/L (21-32); Glucose Level 198 mg/dL (74-106); Phosphorus 3.3 mg/dL (2.5-4.9); Potassium 3.7 mmol/L (3.5-5.1); Sodium Level 148 mmol/L (136-145)
[2019-02-11] MEDS: INSULIN -REGULAR HUMAN 50 UNIT/0.5 ML ML SQ SCH ×2 (07:30→11:53)
[2019-02-11] MEDS ORDERED: REGADENOSON 0.4 MG/5 ML SYR IV ONE (08:27)
[2019-02-11] MEDS ORDERED: POTASSIUM CL SA 10 MEQ TAB PO ONE (09:00)
--- NOTE | 2019-02-11 10:35 | RAD REPORT ---
EXAM DESCRIPTION: NM - Rest Stress Cardiac Imaging - 02/11/2019 10:27 am CLINICAL HISTORY: Chest pain COMPARISON: None. TECHNIQUE: The patient was administered approximately 10 mCi of Tc 99m Sestamibi prior to resting SP ECT imaging of the heart. The patient was then administered approximately 30 mCi of Tc 99m Sestamibi following exercise or pharmacologic stress. Multiplanar SPECT images were reviewed. FINDINGS: The end diastolic volume is 208 ml, the end systolic volume is 121 ml, and the ejection fr action is 42 %. No stress-induced ischemic change identifiable. Large fixed defect is present along the inferior wall from base to the apex. This is probably scarring given the ventricular dilatation and poor ejection fraction. Diaphragmatic attenuation is an additional consideration. IMPRESSION: No stress-induced ischemia identified. Large inferior wall fixed defect favored to be scarring rather than diaphragm attenuation artifact. Enlarged end-diastolic volume of 208 mL with a below normal 42% EF.
--- NOTE | 2019-02-11 10:43 | TREADPHA ---
DX: CHEST PAIN Date of Study: 02/11/2019 Ht: 5 7 Wt: 211 lb 8 oz Consulting Physician: PETE MEDICATIONS: ASPIRIN, COREG, PLAVIX, DEXTROSE, LOVENOX, GLUCAGEN, CATAPRES HISTORY: 63 YEAR OLD MALE HERE WITH CHEST PAIN. HISTORY OF DIABETES AND HYPERTENSION. PHYSICIAL EXAMINATION: RESTING B.P.: 195/101 RESTING H.R.: 73 RESTING EKG: SINUS RHYTHM, PREMATURE ATRIAL COMPLEXES, PROLONGED QT PROTOCOL: LEXISCAN EXERCISE TIME: 3:30 B.P. AT PEAK STRESS: 173/103 IMPRESSION: LEXISCAN STRESS TEST PERFORMED. CARDIOLITE INJECTED PER PROTOCOL. FREQUENT PREMATURE ATRIAL COMPLEXES AND OCCASIONAL PREMATURE VENTRICULAR COMPLEXES NOTED. DENIES ANY PAIN. SEE NUCLEAR MEDICINE REPORT.
[2019-02-11] MEDS: TAMSULOSIN 0.4 MG SR CAP PO SCH (10:55)
[2019-02-11] MEDS: cloNIDine HCl 0.1 MG TAB PO SCH ×2 (10:55→14:00)
[2019-02-11] MEDS ORDERED: HYDROCODONE/APAP 5/325 MG TAB PO ONE (10:57)
[2019-02-11] MEDS: RANITIDINE 150 MG TABLET PO SCH (10:57)
[2019-02-11] MEDS: CLOPIDOGREL 75 MG TABLET PO SCH (10:57)
[2019-02-11] MEDS: HYDRALAZINE HCL 20 MG/ML VIAL IV PRN (11:16)
[2019-02-11] MEDS: CARVEDILOL 25 MG TAB PO SCH (11:52)
--- NOTE | 2019-02-11 23:31 | PN ---
The patient had been admitted by Dr. Rothman on 02/09/2019. He was seen by Dr. Collins on 02/10/2019. Today 02/11/2019, the patient underwent a stress Cardiolite which was normal. Echocardiogram showed an ejection of 53%. He has a history of diabetes, hypertension, CAD status post PCI and congestive h eart failure. I would continue to diurese him and he can go home. If his symptoms are to reoccur, nicholas macedo may want to consider recatheterizing him. REBECCA/PIOTR Voice ID: [id number] Report ID: [id number]
--- NOTE | 2019-02-12 00:22 | DS ---
Date of Discharge: 02/11/2019 Consultants: Dr. Funes and Dr. Collins with Cardiology. Procedures: Cardiac nuclear stress test on 02/11/2019, with no stress-induced. Admitting Diagnoses: 1.Acute respiratory distress. 2.Generalized edema. 3.Volume overload. 4.Chest pain. 5.Arrhythmia. 6.Hypernatremia. 7.Hypokalemia. 8.Hypomagnesemia. 9.Elevated troponin level. 10.Diabetes mellitus, type 2, without long-term use of insulin. 11.Essential hypertension. 12.Obesity, BMI 33. Hospital Course: The patient is a 64-year-old male with past medical history of hypertension, diabet es mellitus type 2, and generalized edema, comes in with chest pain and pressure with worsening leg e amparo. The patient did have an arrhythmia, had multiple electrolyte abnormalities including elevated sodium level, decreased potassium level and magnesium level. He had elevation of his troponin level at 0.31. The patient was felt to have acute respiratory distress secondary to volume overload, which was likely due to CHF. He did not have a previous diagnosis. Workup was initiated. Cardiology was consulted. His echocardiogram showed an EF of 53%. His cardiac stress test was ordered by Cardiolo gy, which showed no stress-induced ischemia. His Doppler venous study ruled out DVT of the lower ext remities. Arterial study did not show any significant peripheral arterial disease. Overall, the pat ient did well. Over the course of the hospital stay, his blood pressure improved. He no longer was having any chest pressure, overall did well. His pain was resolved. The patient was then cleared fo r discharge from cardiology standpoint after negative stress test. The patient will be following up with his primary care physician in 2-3 days, follow up with jordan man, Dr. Funes, in 2 weeks. R eturn to ER for worsening condition. Diet: Low-sodium, fluid-restricted diet. Activity: As tolerated. Medications: As per medication reconciliation list. Physical Examination: General: Awake, alert, oriented x3. Elderly male, obese. CV: S1, S2. Regular rate and rhythm. Peripheral pulses present. Respiratory: Moving air well bilaterally. No wheezing. Gastrointestinal: Abdomen is soft, nontender, nondistended. Positive bowel sounds. Extremities: No clubbing, cyanosis. The patient has peripheral edema. Skin: Chronic venous stasis changes. Neurologic: Nonfocal. Code Status: Full. Total time spent discharging the patient was 37 minutes. /PIOTR Voice ID: [id number] Report ID: [id number]
--- NOTE | 2019-02-15 16:08 | DS ---
Date of Discharge: 02/11/2019 Addendum: to the report ID #[id number]. Admitting diagnosis: 1. New-onset congestive heart failure, diastolic dysfunction. /PIOTR Voice ID: [id number] Report ID: [id number] MTDD
== END 2019-02-11 14:10 | disposition home or self-care (01) | DRG 292 ==
LOC: ER 11:39 → ERHOLD 14:13 → 3RD-ICU 15:37
PROVIDERS: ADMIT Family Medicine; ATTEND Family Medicine
DX: I11.0 Hypertensive heart disease with heart failure (principal); E87.0 Hyperosmolality and hypernatremia; I49.8 Other specified cardiac arrhythmias; I50.30 Unspecified diastolic (congestive) heart failure; E87.6 Hypokalemia; R07.9 Chest pain, unspecified; R06.03 Acute respiratory distress; I25.10 Atherosclerotic heart disease of native coronary artery without angina pectoris; E83.42 Hypomagnesemia; E11.65 Type 2 diabetes mellitus with hyperglycemia; I10 Essential (primary) hypertension; I87.8 Other specified disorders of veins; E66.9 Obesity, unspecified; Z68.33 Body mass index [BMI] 33.0-33.9, adult; K21.9 Gastro-esophageal reflux disease without esophagitis; Z23 Encounter for immunization; Z79.84 Long term (current) use of oral hypoglycemic drugs; Z79.02 Long term (current) use of antithrombotics/antiplatelets; Z79.82 Long term (current) use of aspirin; Z95.5 Presence of coronary angioplasty implant and graft
CPT/HCPCS: 36415; 71045; 78452; 80048; 80053; 80061; 80076; 82043; 82962; 83036; 83735; 83880; 84100; 84132; 84439; 84443; 84484; 85025; 85610; 86803; 90471; 90670; 93005; 93017; 93306; 93925; 93970; 96365; 96366; 96367; 96368; 96374; 96375; 99284; 99285; A9500; J0360; J1650; J1720; J1940; J2785; J3475